=== PATIENT | male | born 1960 | race Caucasian/White ===

== ENCOUNTER → 2020-06-12 13:08 | Outpatient (CLI) | payer BC, SELFPAY ==
--- NOTE | 2020-06-12 13:45 | CT_ITS ---
CT of the left lower extremity without contrast INDICATION: Preop knee arthroplasty, january protocol. TECHNIQUE: Multiple thin section axial CT images of the left hip joint, left knee joint, and left ankle joint were obtained without the administration of intravenous contrast and filmed in bone windows. Furthermore, multiple sagittal and coronal reconstructions were performed. Dose limiting techniques were utilized. FINDINGS: No abnormal soft tissue mass, lymphadenopathy, fluid collection. No acute fracture or dislocation. No lytic or blastic lesions. Next Normal left hip joint. Moderate left knee arthrosis with a large joint effusion. Normal left ankle joint. IMPRESSION: Moderate knee arthrosis with a large joint effusion. Electronically Signed: Evangelista Abarca MD at 15:31 EDT Tel , Service support , CT/Extremity Lower without Contra
== END ==
PROVIDERS: PCP Family Medicine; Referring Provider Orthopaedic Surgery; Visit Provider Orthopaedic Surgery
DX: M17.12 Unilateral primary osteoarthritis, left knee (principal); M21.162 Varus deformity, not elsewhere classified, left knee
CPT/HCPCS: 73700

== ENCOUNTER 2020-06-30 07:31 | Observation (INO) | payer BC, SELFPAY ==
--- NOTE | 2020-06-23 08:23 | EKG12_ITS ---
Test Reason : PREOP Blood Pressure : / mmHG Vent. Rate : 060 BPM Atrial Rate : 060 BPM P-R Int : 160 ms QRS Dur : 102 ms QT Int : 418 ms P-R-T Axes : 012 064 041 degrees QTc Int : 418 ms Normal sinus rhythm Normal ECG Confirmed by BRIAN ALEXIS, BILLY ([id number]), graphics editor ANASTASIYA COURTNEY ([id number]) on 06/24/2020 9:09:36 AM Referred By: Ben Su Confirmed By:BILLY TORRES MD
[2020-06-23 08:57] LABS: Absolute Lymphocyte Count 1.55 X10^3/uL (0.83-4.51); Absolute Neutrophil Count 4.9 X10^3/uL (2.0-7.7); Basophil# 0.01 X10^3/uL; Basophil% 0.1 % (0-1); Eosinophil# 0.08 X10^3/uL; Eosinophils% 1.1 % (0-5); Hematocrit 45.1 % (40-54); Hemoglobin 15.2 g/dL (13.0-16.5); Lymphocyte # 1.55 X10^3/ul (4.0); Lymphocyte % 21.1 % (19-41); Mean Corp Hgb Conc 33.7 g/dL (32-36); Mean Corpuscular Hgb 31.3 pg (27.0-32.0); Mean Corpuscular Volume 92.8 fL (80-94); Mean Platelet Vol. 10.3 fl (6.2-12.0); Monocyte# 0.83 X10^3/uL; Monocyte% 11.3 % (0-10); NRBC Flagged by Analyzer 0 % (0-5); Neutrophil # 4.86 X10^3/uL (2.7-7.7); Platelet Count 220 K/mm3 (150-450); RBC Distribution Width CV 11.9 % (11.6-14.6); Red Blood Count 4.86 M/mm3 (4.6-6.2); White Blood Count 7.4 K/mm3 (4.4-11.0)
[2020-06-23 09:12] LABS: Anion Gap 7 (5-15); BUN 14 mg/dL (7-18); BUN/Creat Ratio 14.2 RATIO (10-20); Calcium,Total 9.1 mg/dL (8.5-10.1); Chloride 101 mmol/L (98-107); Creatinine, Serum 0.99 mg/dL (0.70-1.30); EST Glomerular Filtration Rate 82 mL/min (>60); Est Glom Filt Rate - Afr Amer 99 mL/min (>60); Glucose 114 mg/dL (74-106); Magnesium 2.3 mg/dL (1.6-2.6); Potassium 3.8 mmol/L (3.5-5.1); Sodium Level 137 mmol/L (136-145)
[2020-06-30] VITALS (12 sets, daily range): BP systolic 106–146; BP diastolic 48–79; PULSE 50–64; RESP 14–18; TEMP 36.1–37; O2SAT 96–100; BMI 38.2
[2020-06-30] MEDS: Acetaminophen 500 MG Tablet 1000 MG PO ×3 (06:32→22:05)
[2020-06-30] MEDS: Gabapentin 600 MG Tablet PO (06:32)
[2020-06-30] MEDS: Lactated Ringers 1,000 ML 125 ML IV ×2 (06:33→09:00)
[2020-06-30] MEDS: Insulin Lispro 100 UNIT/ML INSULN.PEN SC (06:45)
[2020-06-30 06:46] LABS: Bedside Glucose 258 mg/dL (70-110)
[2020-06-30] MEDS: Cefazolin 2 GM in 0.9% Normal Saline 100 ML IV (07:27)
--- NOTE | 2020-06-30 07:30 | KNEE_PTH ---
PATIENT: BILLY MEAD LOC: [facility] U#:[id number] AGE/SX: 59/M ROOM: IA312 RE06/30/[address]: Dr. Ben Su DO : 1960 BED: 1 DIS: 07/01/2020 SPEC #: [id number] RECD: 06/30/20 09:55 STATUS: MARIA G REJai #: [id number] RADHA: 06/30/20 07:[address]: Ben Su DEPT: SURGICAL PATHOLOGY RECD BY: Jered Escobar ENTERED: 06/30/20 10:22 SP TYPE: TOTAL KNEE OTHR DR: Dr. Johan Jean Baptiste III, MD Tissues: Knee, NOS Procedures: Decalcification bone/plaque Surgery Specimen Level IV HEADER OPERATION: Total knee replacement robotic arm assist PRE-OP DIAGNOSIS: Unilateral primary osteoarthritis left knee TISSUE SUBMITTED: Bone and soft tissue left knee MICROSCOPIC DIAGNOSIS Bone and soft tissue, left knee, total knee replacement/resection: Pieces of bone with degenerative osteoarthritic changes. Fibroadipose tissue, fibroconnective tissue and reactive synovial tissue. TRAVIS:mackenzie 07/03/20 MICROSCOPIC DESCRIPTION Slides are reviewed. GROSS DESCRIPTION Received is one container designated bone and soft tissue left knee. The specimen consists of multiple fragments of ayala-yellow bone measuring in aggregate 10 x 11 x 3 cm. Also in the specimen container are multiple fragments of yellow-white soft tissue measuring in aggregate 9 x 8 x 3 cm. A number of bony fragments contain articular surfaces consistent with tibial plateau and femoral condyle and displaying prominent osteophyte formation, eburnation, and bone erosion. Crm Campaign Manager sections are submitted in two cassettes as follows: 1 - soft tissue, 2 - bone after decalcification. / TRAVIS:mackenzie 06/30/20 TC:5 [facility]: [id number], [id number]
[2020-06-30 09:56] LABS: Bedside Glucose 81 mg/dL (70-110)
--- NOTE | 2020-06-30 10:00 | RAD_ITS ---
STUDY: X-RAY - LEFT KNEE REASON FOR EXAM: Male, 59 years old. POST OP LEFT TKA TECHNIQUE: 2 view(s) of the knee. COMPARISON: None. FINDINGS: Normal visualized distal femur. Normal visualized proximal tibia and fibula. Normal proximal tibiofibular articulation. The patient is status post total knee replacement. There is good alignment. Postoperative soft tissue changes RAD/Knee 1 or 2 Views IMPRESSION: Status post total knee replacement. There is good alignment. Postoperative soft tissue changes. Electronically Signed: Brad Ortiz, at 10:30 EDT , Service support ,
[2020-06-30 10:12] LABS: Hematocrit 44.4 % (40-54); Hemoglobin 15.1 g/dL (13.0-16.5); Mean Corpuscular Hgb 31.3 pg (27.0-32.0); Mean Corpuscular Volume 92.1 fL (80-94); Mean Platelet Vol. 10.3 fl (6.2-12.0); Platelet Count 230 K/mm3 (150-450); RBC Distribution Width CV 11.9 % (11.6-14.6); RBC Distribution Width SD 40.2 fl (35.1-43.9); Red Blood Count 4.82 M/mm3 (4.6-6.2); White Blood Count 8.3 K/mm3 (4.4-11.0)
[2020-06-30 10:23] LABS: Anion Gap 8 (5-15); BUN 12 mg/dL (7-18); BUN/Creat Ratio 12.6 RATIO (10-20); Calcium,Total 8.6 mg/dL (8.5-10.1); Chloride 108 mmol/L (98-107); Creatinine, Serum 0.95 mg/dL (0.70-1.30); EST Glomerular Filtration Rate 86 mL/min (>60); Est Glom Filt Rate - Afr Amer 104 mL/min (>60); Estimated Creatinine Clearance 82.69 ml/min; Glucose 88 mg/dL (74-106); Potassium 4.1 mmol/L (3.5-5.1); Sodium Level 139 mmol/L (136-145)
[2020-06-30] MEDS: Spironolactone 25 MG Tablet PO (11:37)
[2020-06-30] MEDS: Senna/Docusate Sodium 1 Tablet 2 TABLET PO ×2 (11:37→22:05)
[2020-06-30] MEDS: hydroCHLOROthiazide 25 MG Tablet PO (11:38)
--- NOTE | 2020-06-30 13:41 | OP.PCM_ITS ---
Report of Operation Date of Procedure: 06/30/20 Pre-Operative Diagnosis: OA left knee Post-Operative Diagnosis: same Surgery/Procedure Performed:: Left TKR acid purification equipment operator: Deangelo Dubois Type of Anesthesia:: Spinal Anesthesiologist: Nicola Schaefer Estimated Blood Loss (mL): 20 cc - Admit VTE Documentation VTE Present on Admission: No VTE Mechan Device Prophylaxis: SCD's, Thigh High FRANCISCO J Hose VTE Pharm Prophylaxis ordered?: Yes
[2020-06-30] MEDS: Cefazolin 1 GM/50 ML BAG IV (15:38)
[2020-06-30] MEDS: Aspirin 81 MG TAB.CHEW PO (16:29)
[2020-07-01] MEDS: Cefazolin 1 GM/50 ML BAG IV (00:01)
[2020-07-01] MEDS: oxyCODONE 5 MG Tablet PO ×4 (00:21→13:26)
[2020-07-01 00:23] VITALS: BP 146/80; PULSE 63; RESP 16; TEMP 36.3; O2SAT 98
[2020-07-01 04:28] VITALS: BP 143/79; PULSE 63; RESP 16; TEMP 36.7; O2SAT 97
[2020-07-01] MEDS: 0.9% NaCl Peripheral Flush Adult/Peds IV (04:31)
[2020-07-01 05:23] LABS: Hematocrit 41.1 % (40-54); Hemoglobin 13.8 g/dL (13.0-16.5); Mean Corp Hgb Conc 33.6 g/dL (32-36); Mean Corpuscular Hgb 31.7 pg (27.0-32.0); Mean Corpuscular Volume 94.5 fL (80-94); Mean Platelet Vol. 10.3 fl (6.2-12.0); Platelet Count 182 K/mm3 (150-450); RBC Distribution Width CV 11.9 % (11.6-14.6); RBC Distribution Width SD 41.2 fl (35.1-43.9); Red Blood Count 4.35 M/mm3 (4.6-6.2)
[2020-07-01 05:38] LABS: Anion Gap 4 (5-15); BUN 14 mg/dL (7-18); BUN/Creat Ratio 15.3 RATIO (10-20); Calcium,Total 8.3 mg/dL (8.5-10.1); Chloride 105 mmol/L (98-107); Creatinine, Serum 0.92 mg/dL (0.70-1.30); EST Glomerular Filtration Rate 89 mL/min (>60); Est Glom Filt Rate - Afr Amer 108 mL/min (>60); Estimated Creatinine Clearance 85.39 ml/min; Glucose 142 mg/dL (74-106); Potassium 4.5 mmol/L (3.5-5.1); Sodium Level 137 mmol/L (136-145)
[2020-07-01] MEDS: Acetaminophen 500 MG Tablet 1000 MG PO ×2 (06:28→13:25)
--- NOTE | 2020-07-01 07:47 | PN.ORTHO_ITS ---
Subjective: Patient sitting up in bed eating breakfast. Pain well managed. Patient denies chest pain, shortness of breath, calf pain, nausea vomiting. Patient has no other complaints. Patient states he is ready for discharge home today. Objective: Dressing is clean dry intact. Negative signs or symptoms of DVT. Vital signs and labs reviewed noted medical record. Patient is afebrile. Neurovascular is otherwise intact. Patient is speaking in full sentences with no obvious respiratory distress. - Physical Exam Vitals/I&O's: Vital Signs Temp Pulse Resp BP Pulse Ox 98.0 F 63 16 143/79 H 97 07/01/20 04:28 07/01/20 04:28 07/01/20 04:28 07/01/20 04:28 07/01/20 04:28 Oxygen Flow Rate (L/min) 6 Oxygen Delivery Method Room Air Weight: 117.4 kg Body Mass Index (BMI) 38.2 Finger Stick Blood Glucose 81 Intake and Output for Last 24 Hours 06/29/20 06/30/20 07/01/20 23:59 23:59 23:59 Intake Total 2487 / 2842 555 / 555 Output Total 250 / 250 Balance 2487 / 2592 305 / 305 General: Alert, Oriented x3, Cooperative HEENT: PERRLA Oral: Moist Mucosa Neurological: Cranial nerves II-XII grossly intact Psych/Mental Status: Normal Affect, Alert and oriented to time, place, person, mood and affect Laboratory Results 06/30/20 09:50: POC Glucose 81 06/30/20 10:06: WBC 8.3, RBC 4.82, Hgb 15.1, Hct 44.4, MCV 92.1, MCH 31.3, MCHC 34.0, RDW Std Deviation 40.2, RDW Coeff of Lizbeth 11.9, Plt Count 230, MPV 10.3 06/30/20 10:06: Sodium 139, Potassium 4.1, Chloride 108 H, Carbon Dioxide 23.0, Anion Gap 8, BUN 12, Creatinine 0.95, Estim Creat Clear Calc 82.69, Est GFR (MDRD) Af Amer 104, Est GFR (MDRD) Non-Af 86, BUN/Creatinine Ratio 12.6, Glucose 88, Calcium 8.6 07/01/20 05:14: WBC 10.0, RBC 4.35 L, Hgb 13.8, Hct 41.1, MCV 94.5 H, MCH 31.7, MCHC 33.6, RDW Std Deviation 41.2, RDW Coeff of Lizbeth 11.9, Plt Count 182, MPV 10.3 07/01/20 05:14: Sodium 137, Potassium 4.5, Chloride 105, Carbon Dioxide 28.0, Anion Gap 4 L, BUN 14, Creatinine 0.92, Estim Creat Clear Calc 85.39, Est GFR (MDRD) Af Amer 108, Est GFR (MDRD) Non-Af 89, BUN/Creatinine Ratio 15.3, Glucose 142 H, Calcium 8.3 L Current Medications Acetaminophen (Acetaminophen 500 Mg Tablet) 1,000 mg PO Q8 [facility] Last Admin: 07/01/20 06:28 Dose: 1,000 mg Documented by: Amlodipine Besylate (Amlodipine 10 Mg Tablet) 10 mg PO DAILY [facility] Aspirin (Aspirin 81 Mg Tab.Chew) 81 mg PO BIDCM [facility] Last Admin: 06/30/20 16:29 Dose: 81 mg Documented by: Hydrochlorothiazide (Hydrochlorothiazide 25 Mg Tablet) 25 mg PO DAILY [facility] Last Admin: 06/30/20 11:38 Dose: 25 mg Documented by: Insulin Human Lispro (Insulin Lispro 100 Unit/Ml Insuln.Pen) 1 - 6 unit SC Q4H PRN PRN; Protocol PRN Reason: BG>/= 180, SEE PROTOCOL Last Admin: 06/30/20 06:45 Dose: 3 units Documented by: Losartan Potassium (Losartan Potassium 100 Mg Tablet) 100 mg PO DAILY [facility] Ondansetron HCl (Ondansetron 4 Mg/2 Ml Vial) 4 mg IV Q8H PRN PRN PRN Reason: NAUSEA Oxycodone HCl (Oxycodone 5 Mg Tablet) 5 - 10 mg PO Q4H PRN PRN PRN Reason: Pain Score 4-10 Last Admin: 07/01/20 04:31 Dose: 10 mg Documented by: Promethazine HCl (Promethazine 25 Mg/Ml Syringe) 12.5 mg IM Q6H PRN PRN; Protocol PRN Reason: NAUSEA/VOMITING Senna/Docusate Sodium (Senna/Docusate Sodium 1 Tablet) 2 tablet PO BID [facility] Last Admin: 06/30/20 22:05 Dose: 2 tablet Documented by: Sodium Chloride (0.9% Nacl Peripheral Flush Adult/Peds) 5 - 15 ml IV UD PRN PRN Reason: SALINE FLUSH Last Admin: 07/01/20 04:31 Dose: 10 ml Documented by: Sodium Chloride (0.9% Saline Lock 10 Ml Syringe) 10 - 40 ml IV UD PRN PRN Reason: SALINE FLUSH Spironolactone (Spironolactone 25 Mg Tablet) 25 mg PO DAILY [facility] Last Admin: 06/30/20 11:37 Dose: 25 mg Documented by: Medical Necessity - Tobacco Use Smoking Status: Never smoker Tobacco Use: Chew Assessment/Plan Status post left total knee arthroplasty Plan 1. Continue all pain medications as prescribed 2. Continue physical therapy, weight-bear as tolerated with walker 3. Aspirin 81 mg 1 p.o. every 12 hours x30 days for postop DVT prophylaxis 4. Encourage incentive spirometry 5. Patient will continue outpatient physical therapy at [facility] 6. Patient will follow up as scheduled see pink sheet 7. Discharge home today after p.m. therapy
--- NOTE | 2020-07-01 07:52 | DCINST_ITS ---
Discharge Diet: No Restrictions Discharge Activity: May Not Drive, May Shower, Use Walker May shower in (days): 3 Ice area for (Minutes): 20 - each hour while awake. Weight Bearing Status: Weight bearing as tolerated Elevate: Operative Extremity Additional Activity Instructions:: Wear elastic stockings for 2 weeks after your surgery. Call your doctor if your incision/area has: Continuous Slow Oozing, Sudden Increased Bleeding, Increased Pain/ Swelling, Increased Redness, Foul Smelling Discharge Call your doctor if you observe: Fever of 101 or Higher, Coldness, Increased Pain - in extremity, Numbness or Tingling, Change in Color, Calf discomfort, Uncontrolled pain Change Dressing in (Days):: 0 - and daily as needed. Remove Dressing in (days):: 8 Cleanse incision/area with: Soap & Water Allergies/Adverse Reactions: Allergies No Known Allergies Allergy (Verified 06/16/20 08:14) Medications to take at Discharge Amlodipine Besylate [Norvasc] 10 mg PO DAILY 06/16/20 Hydrochlorothiazide [Hctz] 25 mg PO DAILY 06/16/20 Losartan Potassium [Cozaar] 100 mg PO DAILY 06/16/20 Meloxicam 15 mg PO PRN PRN 06/16/20 Spironolactone [Aldactone] 25 mg PO DAILY 06/16/20 Acetaminophen [Tylenol] 1,000 mg PO Q8 #90 tab 07/01/20 Aspirin [Aspirin, Baby] 81 mg PO BIDCM #60 tab.chew 07/01/20 Oxycodone [Oxyir] 5 - 10 mg PO Q4H PRN PRN 7 Days #84 tablet 07/01/20 Senna/Docusate Sodium [Senokot-S] 2 tablet PO BID tablet 07/01/20 The following prescriptions were given: Aspirin [Aspirin, Baby] 81 mg PO BIDCM #60 tab.chew Transmission Status: Pending to [facility] Oxycodone [Oxyir] 5 - 10 mg PO Q4H PRN PRN 7 Days #84 tablet PRN Reason: Pain Score 4-10 Transmission Status: Received by [facility] Acetaminophen [Tylenol] 1,000 mg PO Q8 #90 tab Transmission Status: Pending to [facility] Primary Care Physician: Johan Jean Baptiste III, MD [Primary Care Provider] - Test Results: Test results from this visit will be discussed in further detail at your follow- up appointment, if applicable. Please Follow Up With: Deangelo Dubois PAKingC When: as scheduled (see pink sheet)
[2020-07-01 07:58] VITALS: O2SAT 97
[2020-07-01 08:17] VITALS: BP 136/76; PULSE 60; RESP 16; TEMP 36.7; O2SAT 99
[2020-07-01 08:20] VITALS: PULSE 60
[2020-07-01] MEDS: Aspirin 81 MG TAB.CHEW PO (08:24)
[2020-07-01] MEDS: Senna/Docusate Sodium 1 Tablet 2 TABLET PO (09:43)
[2020-07-01] MEDS: amLODIPine 10 MG Tablet PO (09:43)
[2020-07-01] MEDS: Losartan Potassium 100 MG Tablet PO (09:43)
[2020-07-01] MEDS: Spironolactone 25 MG Tablet PO (09:43)
[2020-07-01] MEDS: hydroCHLOROthiazide 25 MG Tablet PO (09:43)
--- NOTE | 2020-07-01 11:00 | CASEMGMT ---
RN LYUDMILA DOCUMENT PREPARATION SPECIALIST CM to room to meet with patient for initial transition planning/care coordination assessment. VERO COREAS introduced self and role at [facility]. Pt voices understanding and consents to assessment at this time. Pt sitting up in chair in room in no distress at this time. in room visiting. Pt is A/O at this time and answers all questions appropriately. Care providers, pharmacy, and demographics verified/updated at this time. PCP: Dr Rodney Jean Baptiste Specialists: Dr Su-ortho Preferred Pharmacy: [facility] Insurance: [place] Prescription Benefit: Yes Living Will/HPOA: Has LW and Healthcare POA, who is his , Bess. They are aware copies are not on file @ [facility]. LNOK: , Bess. Living Arrangements: Lives w/ in 2-story home. Flight to Bedroom and full bath. Plans to [facility] for awhile until he is able to navigate stairs better. Was independent prior to admission. able to help. Transportation: Pt, . Denies transportation concerns. DME: States has the following DME: Shower chair, raised toilet seat, cane, crutches, grab bars, walker, long shoe horn, yarn examiner skeins, Polar care. Pt states no need for further DME at this time. HHC/SNF: No history of either. Denies need for HHC. Plans to go to OP therapy @ [facility]. Has appt 07/04 @ 0900. Pt wishes to return home and states has no concerns with going home at time of discharge. CM to follow for any discharge planning/needs. Pt/ voice no concerns/needs at this time. Advised them to ask for CM if any questions/concerns/needs arise. Miriam voice understanding. PLAN: Home w/OP PT @ [facility]. Amandeep DE SANTIAGO RN, CM
[2020-07-01 12:08] VITALS: BP 142/73; PULSE 68; RESP 16; TEMP 37.3; O2SAT 98
== END 2020-07-01 13:36 | disposition home or self-care (01) ==
LOC: MS3 11:14 → SDC 11:16 → MS3 11:16
PROVIDERS: Anesthesiology; Admitting Provider Orthopaedic Surgery; PCP Family Medicine; Referring Provider Orthopaedic Surgery; Visit Provider Orthopaedic Surgery
PROC: 0SRD0JZ Replacement of Left Knee Joint with Synthetic Substitute, Open Approach (ICD-10-PCS; CPT 27447; principal; 2020-06-30 07:00)
DX: M17.12 Unilateral primary osteoarthritis, left knee (principal); Z20.828 Contact with and (suspected) exposure to other viral communicable diseases; I10 Essential (primary) hypertension; Z79.899 Other long term (current) drug therapy; M21.162 Varus deformity, not elsewhere classified, left knee
CPT/HCPCS: 01400; 27447; 64447; S2900; 36415; 73560; 80048; 82962; 83735; 85025; 85027; 87077; 87081; 87635; 88305; 88311; 93005; 94762; 96361; 96365; 96366; 97110; 97116; 97161; 97166; 97530; 97535; 99218; 99251; 99406; C1776; C9803; J7040; J7120; A4216; G0378; G0379; G0463; J2405; U0003

== ENCOUNTER 2020-12-26 20:50 | Emergency (ER) | payer OTHER, SELFPAY ==
[2020-06-30 10:59] VITALS: BMI 38.2
[2020-12-26 20:51] VITALS: BP 124/73; PULSE 70; RESP 16; TEMP 35.8; O2SAT 97; BMI 36.9
--- NOTE | 2020-12-26 21:05 | ED.VIS.GEN ---
History of Present Illness Chief Complaint: Laceration Informant: Patient Onset: Today Narrative: Patient is a [id number]-rhbrjdhp male. He is presenting with laceration to his right index finger. He cut it still this afternoon. He is more concerned because it will not stop bleeding. He denies any significant pain. He is not sure his last tetanus was. He denies any deformity of the finger difficulty moving it. He is not on any blood thinners. His recommend he come to the emergency room for a stitch. Past Medical History - Allergies and Home Meds Allergies/Adverse Reactions: Allergies No Known Allergies Allergy (Verified 12/26/20 21:14) Primary Care Physician: Johan Jean Baptiste III, MD [Primary Care Provider] - Smoking Status: Never smoker Review of Systems General: Denies: Chills, Fever, Sweats Cardiovascular: Denies: Chest pain Gastrointestinal: Denies: Abdominal pain, Nausea Musculoskeletal: Denies: Myalgias, Arthralgias, Extremity Pain Skin: Reports: Wounds - right index finger Neurological: Denies: Headache, Weakness, Parasthesia Hematologic: Denies: Easy bruising, Easy bleeding Physical Exam Vital Signs/Narrative: Vital Signs Temp Pulse Resp BP Pulse Ox 12/26/20 20:51 96.4 F L 70 16 124/73 H 97 Inital Vital Signs reviewed: Yes General: Well nourished, Well developed, No Acute Distress Head: Normocephalic, Atraumatic Eyes: Perrl, EOMI ENT: Moist mucous membranes, No rhinorrhea Neck: Supple, Nontender Cardiovascular: Regular rate Respiratory: No distress Back: Nontender, Normal Inspection Extremities: Nontender, No edema, - - normal range of motion of right index finger Skin: Normal color, No rash, Trauma - 5 mm full-thickness laceration over the proximal PIP, lateral aspect of the right index finger Neurological: Alert, Oriented x3, Cranial nerves II-XII grossly intact, Normal Strength, Normal Sensation Psychological: Normal affect, Normal Mood Diagnostic/Tx/Re-eval - Medical Decision Making Patient evaluated for laceration to the right index finger the laceration itself is small however he continues to bleed, probably because it is over the PIP joint of his dominant hand. 1 sutures placed to approximate the wound and prevent further bleeding. Patient is offered lidocaine but and elects to just have the suture placed without anesthetic. Patient counseled on wound care. Observable sutures placed so he would not have to have it removed. Patient is counseled on signs and symptoms requiring return to the emergency room. Patient verbalizes agreement and understand this plan. Patient discharged home in stable and improved condition. Procedures - Lacerations No standard instances Length: 0.2 in Depth: Skin Shape: Linear Prep: Shure-Clens Irrigated (ml): 200 Number of Sutures/[place]: 1 Suture Information: Vicryl - Absorbable, Simple, 4-0 ED Disposition - Plan for ED Patient: Disposition: Home or Assisted Living Diagnosis: Finger laceration, Need for Tdap vaccination Instructions: ED Laceration, Hand: All Closures Referrals: Johan Jean Baptiste III, MD [Primary Care Provider] - Additional Instructions: 1 absorbable stitch was placed. It should fall out on its own in approximately 7 days. If is still in after that is can be cut out.
[2020-12-26] MEDS: Diphth,Pertuss(Acell),Tet Vac 0.5 ML Vial IM (21:10)
[2020-12-26] MEDS: Lidocaine 1% (20 ml mdv) 20 ML Vial INFILT (21:38)
== END 2020-12-26 21:42 | disposition home or self-care (01) ==
LOC: ED 21:41
PROVIDERS: Emergency Provider Emergency Medicine; PCP Family Medicine
DX: S61.210A Laceration without foreign body of right index finger without damage to nail, initial encounter (principal); W45.8XXA Other foreign body or object entering through skin, initial encounter; Y93.9 Activity, unspecified; Y92.9 Unspecified place or not applicable; Y99.9 Unspecified external cause status
CPT/HCPCS: 12001; 90715; 99284

== ENCOUNTER → 2023-06-27 | Outpatient (CLI) | payer OTHER, SELFPAY ==
--- NOTE | 2023-06-27 13:38 | CT_ITS ---
PROCEDURE: CT RIGHT KNEE WITHOUT CONTRAST REASON FOR EXAM: Male, 62 years old. Preoperative planning for the MakoPlasty Robotic knee surgery. Knee pain. TECHNIQUE: Transaxial CT of the hip, knee and ankle were obtained. Coronal and sagittal reconstruction images of the knee were provided. Individualized dose optimization techniques were used for this CT. COMPARISON: None. FINDINGS: Standard protocol for the preoperative planning for the MakoPlasty robotic knee surgery was performed. There is mild osteoarthrosis of the right hip, moderate tricompartmental arthrosis of the right knee and mild arthrosis of jugular subtalar joints. Calcaneal spurs.. CT/Extremity Lower without Contra IMPRESSION: Preoperative MakoPlasty Robotic knee surgical CT evaluation with findings as described above. Electronically Signed: Deangelo Alvarez MD at 15:15 EDT ,
== END | disposition home or self-care (01) ==
LOC: CT 13:32
PROVIDERS: Visit Provider Orthopaedic Surgery
DX: M17.11 Unilateral primary osteoarthritis, right knee (principal)
CPT/HCPCS: 73700

== ENCOUNTER 2023-07-11 05:25 | Day surgery (SDC) | payer OTHER, SELFPAY ==
[2023-06-27 14:45] LABS: Absolute Lymphocyte Count 1.15 X10^3/uL (0.83-4.51); Absolute Neutrophil Count 2.6 X10^3/uL (2.0-7.7); Basophil# 0.01 X10^3/uL; Basophil% 0.2 % (0-1); Eosinophil# 0.04 X10^3/uL; Eosinophils% 0.8 % (0-5); Hematocrit 45.9 % (40-54); Hemoglobin 15.4 g/dL (13.0-16.5); Lymphocyte # 1.15 X10^3/ul (0.83-4.51); Lymphocyte % 23.9 % (19-41); Mean Corp Hgb Conc 33.6 g/dL (32-36); Mean Corpuscular Hgb 30.8 pg (27.0-32.0); Mean Corpuscular Volume 91.8 fL (80-94); Mean Platelet Vol. 10.2 fl (6.2-12.0); Monocyte# 0.98 X10^3/uL; Monocyte% 20.4 % (0-10); NRBC Flagged by Analyzer 0 % (0-5); Neutrophil % 54.1 % (47-70); Platelet Count 187 K/mm3 (150-450); RBC Distribution Width CV 12.2 % (11.6-14.6); RBC Distribution Width SD 40.8 fl (35.1-43.9); White Blood Count 4.8 K/mm3 (4.4-11.0)
[2023-06-27 14:54] LABS: Magnesium 2.3 mg/dL (1.6-2.6)
[2023-06-27 15:00] LABS: Albumin, Serum 4.1 g/dL (3.2-5.0); Anion Gap 4 (5-15); BUN 14 mg/dL (7-18); BUN/Creat Ratio 15.8 RATIO (10-20); Calcium,Total 8.8 mg/dL (8.5-10.1); Chloride 104 mmol/L (98-107); Creatinine, Serum 0.89 mg/dL (0.70-1.30); EST Glomerular Filtration Rate 92 mL/min (>60); Est Glom Filt Rate - Afr Amer 111 mL/min (>60); Glucose 97 mg/dL (74-106); Potassium 3.8 mmol/L (3.5-5.1); Sodium Level 136 mmol/L (136-145)
[2023-06-27 15:25] LABS: Hemoglobin A1c 5.5 % (3.8-5.6)
[2023-07-11] MEDS: Lactated Ringers 1,000 ML 999 ML IV (06:21)
[2023-07-11] MEDS: Gabapentin 600 MG Tablet PO (06:23)
[2023-07-11] MEDS: Acetaminophen 500 MG Tablet 1000 MG PO (06:23)
[2023-07-11] MEDS: Magnesium 1 GM over 15 mins IV (06:23)
[2023-07-11 06:26] VITALS: BP 127/69; PULSE 60; RESP 18; TEMP 36.3; O2SAT 97; BMI 37.8
[2023-07-11] MEDS: Lactated Ringers 1,000 ML 125 ML IV (07:30)
--- NOTE | 2023-07-11 07:30 | KNEE_PTH ---
PATIENT: BILLY MEAD [place] [id number] AGE/SX: 62/M ROOM: RE07/11/[address]: Dr. Ben Su DO : 1960 BED: DIS: 07/11/2023 SPEC #: [id number] RECD: 07/11/23 10:12 STATUS: MARIA G WILFREDO #: [id number] RADHA: 07/11/23 07:[address]: Ben Su DEPT: SURGICAL PATHOLOGY RECD BY: Adeola Felder ENTERED: 07/11/23 11:10 SP TYPE: TOTAL KNEE OTHR DR: Dr. Santana Spencer MD Tissues: Knee, NOS Procedures: Decalcification bone/plaque Surgery Specimen Level IV HEADER OPERATION: ERAS, right total knee replacement robotic arm assist PRE-OP DIAGNOSIS: Unilateral primary osteoarthritis, right knee TISSUE SUBMITTED: bone and soft tissue of right knee MICROSCOPIC DIAGNOSIS Bone and soft tissue, right knee, total knee replacement/resection: Pieces of bone with degenerative osteoarthritic changes. Fibroadipose tissue, fibroconnective tissue and reactive synovial tissue. SJ: 07/14/2023 MICROSCOPIC DESCRIPTION Slides are reviewed. GROSS DESCRIPTION Received is one container designated bone and soft tissue right knee. The specimen consists of multiple fragments of ayala-yellow bone measuring in aggregate 11 x 11 x 3.5 cm. Also present in the specimen container are multiple fragments of yellow-white soft tissue measuring in aggregate 8 x 8 x 3 cm. A number of bony fragments contain articular surfaces consistent with tibial plateau and femoral condyle and displaying prominent osteophyte formation, eburnation and bone erosion. Solderer Dipper sections are submitted in two cassettes as follows: 1 - soft tissue, 2 - bone after decalcification. / TRAVIS:roscoe 07/11/23 : 5 [facility]: [id number], [id number]
[2023-07-11] MEDS: Cefazolin 2 GM in 0.9% Normal Saline (100mL Bag) 100 ML IV (07:34)
[2023-07-11] MEDS: TXA 1000mg in NS100 100ml (IVPB at Incision) 660 MG IV (07:46)
[2023-07-11 07:57] LABS: Bedside Glucose 191 mg/dL (74-106)
[2023-07-11] MEDS: JPS (Morphine 10mg/ml) OPERA.SITE (08:58)
[2023-07-11] MEDS: TXA 1000mg in NS100 100ml (IVPB at Closure) 660 MG IV (09:03)
--- NOTE | 2023-07-11 09:12 | PCM.OPRPT ---
Report of Operation Date of Procedure: 07/11/23 Pre-Operative Diagnosis: OA right knee Post-Operative Diagnosis: OA right knee Surgery/Procedure Performed:: Right TKR Description of Surgical Findings:: Report of Operation Date of Procedure: 07/11/2023 Preoperative Diagnosis: [Right ] knee primary osteoarthritis Postoperative Diagnosis: [Right ] knee primary osteoarthritis Operation: Robotic Assisted Knee Total Arthroplasty, [ Right ] knee Surgeon: Dr Ben Su DO Hydraulic Auto Jack Mechanic: Deangelo Dubois PA-C Anesthesia: Greyson Arciniega M.D. Anesthesiologist: Spinal Findings: Stable knee with good patella tracking Specimen(s): Bony cuts Complications: No intraoperative complications Estimated Blood Loss: 20 cc IV Fluids: 1000cc crystalloid Implants Used: 1. [place] Triathlon pres-fit size 5 CR femur 2. [place] Triathlon size 5 tibia 3. 35 mm patella 4. 9 mm CS polyethylene Brief History Operative Indications: [ (62 y/o male) ] with history of [ right ] knee osteoarthrosis with radiographic findings with loss of joint space, osteophyte formation and subchondral sclerosis. Failed conservative measures as mentioned in the H&P. Discussion of total knee arthroplasty as well as risk and benefits were discussed with the patient including but not limited to blood loss, DVTs, PEs, neurovascular damage, general risk of anesthesia including loss of life, and stiffness or instability were also discussed with the patient. Patient demonstrated understanding and was able to sign informed consent. Procedure: On the date of procedure, patient's [ right ] lower extremity was marked in the preoperative area. The patient was then taken back to the operating room where that patient was placed on the table in the supine position. All bony prominences were identified and well-padded. Anesthesia assumed control of the C-spine and airway throughout the remainder of the procedure. A tourniquet was placed on the [right ] upper thigh and the leg was prepped in a sterile fashion. The surgeon then scrubbed at this time. Upon reentering the room, the [ right ] lower extremity was draped in a standard orthopedic fashion. A timeout was then called and everyone agreed upon the side, the site, the procedure to be performed, patient's identity and antibiotics given. Esmarch bandage was used to exsanguinate the extremity and the tourniquet was placed up to 250 mmHg with the knee in flexion. A midline skin incision was made and a sharp dissection was taken down through skin, subcutaneous tissue and fat. The standard medial parapatellar incision was made and the patella was subluxed laterally. An appropriate deep MCL release was done and the fat pad was resected. Our attention was then directed to the patella. The patella was everted and a flat resection was made. The knee was then flexed up and 2 femoral pins were placed inside the incision and 2 tibial pins were placed outside the incision in the medial tibia bicortically. Once this was completed, the 2 checkpoints in the femur and tibia were placed. Knee was then flexed up and the bony landmarks were registered. Once the was completed, the knee taken through range of motion and manually stressed allowing us to plan for an appropriate tibial cut. The robotic arm was brought into the field sterilely and checkpoint and saw were registered. Based on the patient's deformity, the tibial cut was made in [ 2 degrees varus ]. At this time, the tensioner was then placed in the joint and ligament tension was checked at 90 degrees and full extension. Based on the patient's ligamentous tension, appropriate adjustments were made to the operative plan and ligament releases were done. Once we were happy with our operative plan with balanced flexion and extension gaps, our attention was directed to the femur. The robot was brought into the field sterilely and registered. Posterior condylar cuts, anterior chamfer cuts and anterior cuts were appropriately made for a [size 5 ] femur. When these were completed, the saws were switched out in the distal femoral and posterior chamfer cuts were made. Protecting the soft tissue throughout this time. A [size 5 ] base plate was selected. The knee was flexed to 90 degrees and soft tissues and posterior osteophytes were removed from the joint. 40 cc of the periarticular injection was injected into the posterior medial corner of the joint. The appropriate trials were then placed on the femur and tibia. A trial polyethylene was trialed to ensure proper balancing and stability of the knee. The appropriate tibial internal rotation was then marked with a bovie. Our attention was then directed to the patella. The lug holes were drilled and the patella trial was placed. Patellar tracking was checked and deemed appropriate. Once we were happy, lug holes were drilled for the femur and trial components were removed. The tibia was subluxed and pinned into place and the keel was punched and drilled appropriately. Final components were verified and opened. The wound was copiously irrigated with normal saline. The components were impacted into place with the tibia, femur and finally the patella. The trial poly component was placed and the knee was placed in full extension. The tracking, alignment and balance were verified and a [9 mm CS ] polyethylene component was placed. Once the final components were placed an Irrisept lavage was performed and the wound was copiously irrigated with normal saline solution and the periarticular injection was given. the wound was closed in a layer-lewis fashion using #1 vicryl interrupted sutures for the arthrotomy, 2-0 interrupted vicryl suture for the subcuticular layer and alisson for final skin closure. A sterile compressive dressing was then placed. The patient was then awakened from anesthesia, transferred to the [facility] and transferred to the PACU for recovery. My physician medical library assistant was a vital part of this case. He was important in appropriate retraction during the case, and protection of soft tissues during bony cuts. His intimate knowledge of the case and my steps aided in safe and expedient completion of the procedure as well as appropriate position of the leg during the case. He was also vital in assisting with closure under my direct supervision. Due to the complexity of this case, robotic arm was used to assist in the surgery to improve accuracy and clinical outcomes. Post-op Plan: DVT ppx; ASA 81 mg BID, thigh high compression stockings Follow up: in office in 2 weeks for wound check PT: to start POD #0 at hospital, outpatient PT should be arranged. Preoperative antibiotic: Ben Su DO Surgeon: Ben Su exchange consultant: Deangelo Dubois Type of Anesthesia: Spinal Anesthesiologist: Greyson Arciniega Admsantos VTE Documentation VTE Present on Admission: No VTE Mechan Device Prophylaxis: SCD's and Thigh High FRANCISCO J Hose VTE Pharm Prophylaxis ordered?: Yes
[2023-07-11 09:45] VITALS: BP 108/65; BP 127/69; PULSE 58; RESP 16; TEMP 36.6; O2SAT 95
[2023-07-11 10:00] VITALS: BP 115/63; BP 127/69; PULSE 59; RESP 16; O2SAT 100
--- NOTE | 2023-07-11 10:08 | RAD_ITS ---
STUDY: X-RAY - RIGHT KNEE REASON FOR EXAM: Male, 62 years old. Post op TECHNIQUE: 2 view(s) of the knee. COMPARISON: None. FINDINGS: The patient is status post total knee replacement. There is good alignment. Postoperative soft tissue changes. RAD/Knee 1 or 2 Views IMPRESSION: Status post total knee replacement. There is good alignment. Postoperative soft tissue changes. Electronically Signed: Brad Ortiz MD at 13:05 EST ,
[2023-07-11 10:15] VITALS: BP 108/65; BP 127/69; PULSE 57; RESP 16; O2SAT 92
[2023-07-11 10:23] VITALS: BP 117/78; BP 127/69; PULSE 59; RESP 16; TEMP 36.4; O2SAT 97
[2023-07-11 13:14] VITALS: BP 117/74; BP 127/69; PULSE 63; RESP 16; TEMP 36.1; O2SAT 99
== END 2023-07-11 14:05 | disposition home or self-care (01) ==
LOC: SDC 05:27 → AC 05:27
PROVIDERS: Anesthesiology; PCP Family Medicine; Referring Provider Orthopaedic Surgery; Visit Provider Orthopaedic Surgery
PROC: 0SRC0JZ Replacement of Right Knee Joint with Synthetic Substitute, Open Approach (ICD-10-PCS; CPT 27447; principal; 2023-07-11 07:00)
DX: M17.11 Unilateral primary osteoarthritis, right knee (principal); F17.220 Nicotine dependence, chewing tobacco, uncomplicated; I10 Essential (primary) hypertension; E66.9 Obesity, unspecified; Z79.899 Other long term (current) drug therapy; Z68.37 Body mass index [BMI] 37.0-37.9, adult
CPT/HCPCS: 27447; 64447; 36415; 73560; 80048; 82040; 82962; 83036; 83735; 85025; 87081; 88305; 88311; 93005; 97162; C1776; J2405; J3475

== ENCOUNTER → 2023-08-30 | Outpatient (CLI) | payer OTHER, SELFPAY ==
--- NOTE | 2023-08-30 12:47 | VDLE_ITS ---
Reason For Study: R/O DVT RIGHT GSV is normal. CFV is compressible, spontaneous, phasic, competent and demonstrates normal augmentation. FV is compressible, spontaneous, phasic, competent and demonstrates normal augmentation. POP V is compressible, spontaneous, phasic, competent and demonstrates normal augmentation. T/P Trunk is compressible. PTV is compressible. RT PerV is compressible. Nonvascularized structure noted on lateral knee at area of concern. Patient is 7 weeks s/p TKR. Procedure This is a venous duplex using B-mode, color flow and spectral Doppler. Exam performed in department. A preliminary report was called and/or faxed to [facility]. VL/Venous Duplex US, Unilateral Interpretation Summary Deep veins of the right lower extremity are patent and compressible segmentally . There is no evidence of right lower extremity deep vein thrombosis. The right great [place] us vein appears patent and compressible segmentally. Nonvascularized structure noted on lateral knee at area of concern Ordering Physician: Maya Randolph Referring Physician: Kareem Spencer Performed By: Stephanie Blue RVT
[2023-08-30 15:28] LABS: Absolute Lymphocyte Count 1.65 X10^3/uL (0.83-4.51); Absolute Neutrophil Count 6.6 X10^3/uL (2.0-7.7); Basophil# 0.04 X10^3/uL; Basophil% 0.4 % (0-1); Eosinophil# 0.11 X10^3/uL; Eosinophils% 1.2 % (0-5); Hematocrit 45.2 % (40-54); Hemoglobin 14.9 g/dL (13.0-16.5); Lymphocyte # 1.65 X10^3/ul (0.83-4.51); Lymphocyte % 17.8 % (19-41); Mean Corpuscular Hgb 30.5 pg (27.0-32.0); Mean Corpuscular Volume 92.4 fL (80-94); Mean Platelet Vol. 10.6 fl (6.2-12.0); Monocyte# 0.76 X10^3/uL; Monocyte% 8.2 % (0-10); NRBC Flagged by Analyzer 0 % (0-5); Neutrophil # 6.61 X10^3/uL (2.7-7.7); Neutrophil % 71.5 % (47-70); Platelet Count 268 K/mm3 (150-450); RBC Distribution Width CV 13.3 % (11.6-14.6); RBC Distribution Width SD 45.3 fl (35.1-43.9); Red Blood Count 4.89 M/mm3 (4.6-6.2); White Blood Count 9.3 K/mm3 (4.4-11.0)
[2023-08-30 15:53] LABS: Erythrocyte Sedimentation Rate < 1 mm/hr (0-20)
[2023-08-30 16:12] LABS: CRP < 2.90 mg/L (0.0-3.0)
== END | disposition home or self-care (01) ==
LOC: CVS 12:44
PROVIDERS: PCP Family Medicine; Referring Provider Physician Assistant Surgical; Visit Provider Physician Assistant Surgical
DX: M79.604 Pain in right leg (principal)
CPT/HCPCS: 36415; 85025; 85652; 86140; 93971

== ENCOUNTER → 2023-09-02 | Outpatient (CLI) | payer OTHER, SELFPAY ==
[2023-09-02 09:03] LABS: Pathologist Comment May follow
[2023-09-02 09:34] LABS: RBC /Synovial Fluid 0.046 10^6/uL (0); Synovial Fld Mononuclear WBC # 0.277 10^3/ul; Synovial Fld Mononuclear WBC % 78.9 %; Synovial Fld Polynuclear WBC # 0.074 10^3/uL; Synovial Fld Polynuclear WBC % 21.1 %
[2023-09-02 09:37] LABS: AUTO B FLUID DILUENT BKGD CT WBC <0.1 RBC <0.01 (W<.1,R<.01); Appearance /Synovial Fluid Cloudy (CLEAR); Color / Synovial Fluid Red (Pale Yellow); Source / Synovial Fluid R KNEE; Source- Body Fluid SYNOVIAL; Viscosity / Synovial Fluid Sl. Viscous (HIGH)
[2023-09-02 09:43] LABS: CRYSTALS, BODY FLUID See PATH REV
[2023-09-02 10:11] LABS: Lymph 36 %; Monocyte /Synovial Fluid 38 %; Neutrophil 26 % (0-25)
[2023-09-02 10:15] LABS: Body Fluid QC Type(s) BF1Q,BF2Q
[2023-09-02 12:19] LABS: Pathologist Review Reviewed
== END | disposition home or self-care (01) ==
LOC: LABSPEC 08:53
PROVIDERS: PCP Family Medicine; Referring Provider Orthopaedic Surgery; Visit Provider Orthopaedic Surgery
DX: Z96.651 Presence of right artificial knee joint (principal)
CPT/HCPCS: 87070; 87075; 87205; 89050; 89051; 89060

== ENCOUNTER 2024-09-14 07:00 | Day surgery (SDC) | payer OTHER, SELFPAY ==
--- NOTE | 2024-09-11 19:00 | PAT.ANE_ITS ---
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 When Was Last Pacemaker Check QUESTION #4 FULL TEXT: You/Your Family Experience fever (hyperthermia) with Anesthesia Last Oral Intake Last Oral intake: Last Oral Intake NPO since Meds taken in AM with sips of water? Meds patient instructed to take am of surgery PONV PONV - bath house attendant: PONV - bath house attendant Female No 09/11/24 09:25 HX of Motion Sickness No 09/11/24 09:25 HX of N/V After Surgery No 09/11/24 09:25 Non-Smoker Yes 09/11/24 09:25 Duration of Surgery greater No 09/11/24 09:25 than 60 minutes Number of Risk Factors 1 09/11/24 09:25 PONV Score Low Risk 09/11/24 09:25 Height & Weight Height & Weight: Anesthesia: Height & Weight Height 5 ft 9 in 07/11/23 06:26 Respiratory Assessment Respiratory Assessment - bath house attendant: Respiratory Tract Infection Hx - bath house attendant Hx Respiratory Tract Infection No 09/11/24 09:25 STOP Sleep Apnea STOP Sleep Apnea - bath house attendant: STOP Sleep Apnea - bath house attendant Hx Hypertension Yes: CONTROLLED WITH MED S 09/11/24 09:25 Hx Sleep Apnea No 09/11/24 09:25 CPAP BIPAP Do you snore loudly (louder No 09/11/24 09:25 than talking or can be heard Do you often feel tired/ No 09/11/24 09:25 fatigued/ sleepy during daytime? Has anyone observed you stop No 09/11/24 09:25 breathing during sleep? STOP Results Negative 09/11/24 09:25 QUESTION #5 FULL TEXT : Do you snore loudly (louder than talking or can be heard through closed doors)? 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 Specify any problems Hx of Preganancy in last 3 N/A 09/11/24 09:25 Months Nurse Filling Out Transfusion NBUCHER 09/11/24 09:25 & Questions: Date: 09/11/24 09/11/24 09:25 Time: 09/11/24 09:25 Patient unable to answer at this time (ie. confused, unrespo /Reproduction History /Reproductive History - bath house attendant: /Reproductive Hx- bath house attendant Hx Now No 09/11/24 09:25 Gestational Age (in weeks): EDC: Hx Hx Para Hx Section SAB No 09/11/24 09:25 [facility] Medical History (Updated 09/11/24 @ 09:32 by Zonia Louis) Wears hearing aid Loss of hearing Former smokeless tobacco use History of stress test Wears contact lenses Wears glasses Alcohol use Arthritis Hypertension Home Medications ?Medication ?Instructions ?Recorded ?Last Taken ?Type amlodipine 10 mg tablet 10 mg PO DAILY bp 06/16/20 07/11/23 History hydrochlorothiazide 25 mg tablet 25 mg PO DAILY bp 06/16/20 Unknown History losartan 100 mg tablet 100 mg PO DAILY bp 06/16/20 06/30/20 04:45 History 100 MG spironolactone 50 mg tablet 25 mg PO DAILY HYPERTENSION 09/11/24 Unknown History Allergy/AdvReac Type Severity Reaction Status Date / Time No Known Allergies Allergy Verified 09/11/24 09:22 Surgical History (Updated 09/11/24 @ 09:32 by Zonia Louis) History of total right knee replacement (TKR) Hx of fusion of cervical spine History of appendectomy History of colonoscopy History of total left knee replacement (TKR) Social History Smoking Status: Never smoker Audit: Pertinent Findings Pertinent Findings EKG Perinent findings: June 27, 2023. Normal sinus rhythm. Right bundle branch block. Recommendation Anesthesia Recommendation Anesthesia recommendation: OPTIMIZED for anesthesia
--- NOTE | 2024-09-14 07:03 | EKG12_ITS ---
Test Reason : PREOP Blood Pressure : */* mmHG Vent. Rate : 57 BPM Atrial Rate : 57 BPM P-R Int : 178 ms QRS Dur : 148 ms QT Int : 444 ms P-R-T Axes : 22 83 22 degrees QTcB Int : 432 ms Sinus bradycardia Right bundle branch block Abnormal ECG Confirmed by Ben Holland ([id number]), editor book LANCE SPRINGER ([id number]) on 09/14/2024 1:00:55 PM Referred By: Lam Wilson Confirmed By: Ben Holland
[2024-09-14 07:45] LABS: Absolute Lymphocyte Count 1.47 X10^3/uL (0.83-4.51); Absolute Neutrophil Count 4.3 X10^3/uL (2.0-7.7); Basophil# 0.01 X10^3/uL; Basophil% 0.1 % (0-1); Eosinophil# 0.19 X10^3/uL; Eosinophils% 2.8 % (0-5); Hematocrit 42.5 % (40-54); Hemoglobin 14.9 g/dL (13.0-16.5); Lymphocyte # 1.47 X10^3/ul (0.83-4.51); Lymphocyte % 21.8 % (19-41); Mean Corp Hgb Conc 35.1 g/dL (32-36); Mean Corpuscular Hgb 31.5 pg (27.0-32.0); Mean Corpuscular Volume 89.9 fL (80-94); Mean Platelet Vol. 10.1 fl (6.2-12.0); Monocyte# 0.77 X10^3/uL; Monocyte% 11.4 % (0-10); NRBC Flagged by Analyzer 0 % (0-5); Neutrophil # 4.28 X10^3/uL (2.7-7.7); Neutrophil % 63.5 % (47-70); Platelet Count 215 K/mm3 (150-450); RBC Distribution Width CV 12.4 % (11.6-14.6); RBC Distribution Width SD 40.9 fl (35.1-43.9); Red Blood Count 4.73 M/mm3 (4.6-6.2); White Blood Count 6.8 K/mm3 (4.4-11.0)
[2024-09-14 08:34] LABS: Anion Gap 3 (5-15); BUN 17 mg/dL (7-18); BUN/Creat Ratio 18.3 RATIO (10-20); Calcium,Total 9.5 mg/dL (8.5-10.1); Chloride 105 mmol/L (98-107); Creatinine, Serum 0.93 mg/dL (0.70-1.30); EST Glomerular Filtration Rate 87 mL/min (>60); Est Glom Filt Rate - Afr Amer 105 mL/min (>60); Glucose 142 mg/dL (74-106); Potassium 4.6 mmol/L (3.5-5.1); Sodium Level 138 mmol/L (136-145)
[2024-09-14 15:03] LABS: Magnesium 2.2 mg/dL (1.6-2.6)
== END 2024-10-01 06:30 | disposition home or self-care (01) ==
LOC: SDC 11-08 15:45
PROVIDERS: Anesthesiology; PCP Family Medicine; Referring Provider Specialist; Visit Provider Specialist
DX: Z01.818 Encounter for other preprocedural examination (principal)
CPT/HCPCS: 36415; 80048; 82040; 83735; 85025; 87081; 93005

== ENCOUNTER 2024-12-31 13:29 | Observation (INO) | payer OTHER, MEDICARE, SELFPAY ==
--- NOTE | 2024-12-06 22:23 | PAT.ANESEVAL ---
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 When Was Last Pacemaker Check QUESTION #4 FULL TEXT: You/Your Family Experience fever (hyperthermia) with Anesthesia Last Oral Intake Last Oral intake: Last Oral Intake NPO since Meds taken in AM with sips of water? Meds patient instructed to take am of surgery PONV PONV - painting worker: PONV - painting worker Female No 12/05/24 13:43 HX of Motion Sickness No 12/05/24 13:43 HX of N/V After Surgery No 12/05/24 13:43 Non-Smoker Yes 12/05/24 13:43 Duration of Surgery greater Yes 12/05/24 13:43 than 60 minutes Number of Risk Factors 2 12/05/24 13:43 PONV Score Moderate Risk 12/05/24 13:43 Height & Weight Height & Weight: Anesthesia: Height & Weight Height 5 ft 9 in 07/11/23 06:26 Respiratory Assessment Respiratory Assessment - painting worker: Respiratory Tract Infection Hx - painting worker Hx Respiratory Tract Infection No 12/05/24 13:43 STOP Sleep Apnea STOP Sleep Apnea - painting worker: STOP Sleep Apnea - painting worker Hx Hypertension Yes: CONTROLLED WITH MED 12/05/24 13:43 Hx Sleep Apnea No 12/05/24 13:43 CPAP BIPAP Do you snore loudly (louder Yes 12/05/24 13:43 than talking or can be heard Do you often feel tired/ No 12/05/24 13:43 fatigued/ sleepy during daytime? Has anyone observed you stop No 12/05/24 13:43 breathing during sleep? STOP Results Positive 12/05/24 13:43 QUESTION #5 FULL TEXT : Do you snore loudly (louder than talking or can be heard through closed doors)? 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 Specify any problems Hx of Preganancy in last 3 N/A 12/05/24 13:43 Months Nurse Filling Out Transfusion DSCHRIBER 12/05/24 13:43 & Questions: Date: 12/05/24 12/05/24 13:43 Time: 13:45 12/05/24 13:43 Patient unable to answer at this time (ie. confused, unrespo /Reproduction History /Reproductive History - painting worker: /Reproductive Hx- painting worker Hx Now No 12/05/24 13:43 Gestational Age (in weeks): EDC: Hx Hx Para Hx Section SAB No 12/05/24 13:43 [facility] Medical History (Updated 12/05/24 @ 13:55 by Romi Suárez) History of stress test Cardiology follow-up encounter Wears hearing aid Loss of hearing Former smokeless tobacco use Wears contact lenses Wears glasses Alcohol use Arthritis Hypertension Home Medications ?Medication ?Instructions ?Recorded ?Last Taken ?Type amlodipine 10 mg tablet 10 mg PO DAILY bp 06/16/20 07/11/23 History hydrochlorothiazide 25 mg tablet 25 mg PO DAILY bp 06/16/20 Unknown History losartan 100 mg tablet 100 mg PO DAILY bp 06/16/20 06/30/20 04:45 History 100 MG spironolactone 50 mg tablet 25 mg PO DAILY HYPERTENSION 09/11/24 Unknown History Allergy/AdvReac Type Severity Reaction Status Date / Time No Known Allergies Allergy Verified 12/05/24 13:38 Surgical History (Updated 12/05/24 @ 13:55 by oRmi Suárez) History of cardiac catheterization History of total right knee replacement (TKR) Hx of fusion of cervical spine History of appendectomy History of colonoscopy History of total left knee replacement (TKR) Social History Smoking Status: Former smoker Audit: Pertinent Findings Pertinent Findings EKG Perinent findings: 10/01/2024. Normal sinus rhythm. Right bundle branch block. September 14, 2024. Sinus bradycardia 57 bpm. Right bundle branch block. Stress test pertinent findings: September 28, 2024. Ejection fraction of 63%. 10 to 20% ischemia in the LAD territory. 10 to 20% ischemia in the RCA territory. Echo (EF%) pertinent findings: September 27, 2024. Ejection fraction 56%. Ascending aorta is dilated to 3.9 cm. No significant valvular disease. No pulmonary hypertension. Consult pertinent findings: October 01, 2024. Dr. Moya. 1. Chest discomfort-significant abnormal nuclear stress test in LAD and RCA territories. Patient needs cardiac cath. 2. Hypertension-controlled. 3. Aortic root dilation?nonsignificant. Recommendation Anesthesia Recommendation Anesthesia recommendation: F/U recommended (Cardiology note from September 2024 recommends cardiac cath. I did not see that it this has been done. Please verify with the patient that cardiac cath has been done and get results please.)
[2024-12-14 06:53] LABS: Absolute Lymphocyte Count 1.57 X10^3/uL (0.83-4.51); Absolute Neutrophil Count 4.9 X10^3/uL (2.0-7.7); Basophil# 0.01 X10^3/uL; Basophil% 0.1 % (0-1); Eosinophils% 2.6 % (0-5); Hematocrit 44.1 % (40-54); Hemoglobin 15.3 g/dL (13.0-16.5); Lymphocyte # 1.57 X10^3/ul (0.83-4.51); Lymphocyte % 20.8 % (19-41); Mean Corp Hgb Conc 34.7 g/dL (32-36); Mean Corpuscular Hgb 31.1 pg (27.0-32.0); Mean Corpuscular Volume 89.6 fL (80-94); Mean Platelet Vol. 10.5 fl (6.2-12.0); Monocyte% 10.6 % (0-10); NRBC Flagged by Analyzer 0 % (0-5); Neutrophil # 4.93 X10^3/uL (2.7-7.7); Neutrophil % 65.4 % (47-70); Platelet Count 222 K/mm3 (150-450); RBC Distribution Width CV 12.1 % (11.6-14.6); RBC Distribution Width SD 39.8 fl (35.1-43.9); Red Blood Count 4.92 M/mm3 (4.6-6.2); White Blood Count 7.6 K/mm3 (4.4-11.0)
[2024-12-14 07:07] LABS: Magnesium 2.1 mg/dL (1.5-2.2)
[2024-12-14 07:19] LABS: Albumin, Serum 4.4 g/dL (3.4-4.8); Anion Gap 13 (5-15); BUN 20 mg/dL (4-19); BUN/Creat Ratio 22.5 RATIO (10-20); Calcium,Total 9.5 mg/dL (7.6-11.0); Carbon Dioxide 21.6 mmol/L (21.0-32.0); Chloride 103 mmol/L (98-108); Creatinine, Serum 0.91 mg/dL (0.70-1.20); EST Glomerular Filtration Rate 94 (>60); Glucose 144 mg/dL (70-99); Potassium 4.7 mmol/L (3.3-5.1); Sodium Level 137 mmol/L (133-145)
--- NOTE | 2024-12-14 16:05 | PAT.ANE_ITS ---
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 When Was Last Pacemaker Check QUESTION #4 FULL TEXT: You/Your Family Experience fever (hyperthermia) with Anesthesia Last Oral Intake Last Oral intake: Last Oral Intake NPO since Meds taken in AM with sips of water? Meds patient instructed to take am of surgery PONV PONV - regional vice president life sales: PONV - regional vice president life sales Female No 12/05/24 13:43 HX of Motion Sickness No 12/05/24 13:43 HX of N/V After Surgery No 12/05/24 13:43 Non-Smoker Yes 12/05/24 13:43 Duration of Surgery greater Yes 12/05/24 13:43 than 60 minutes Number of Risk Factors 2 12/05/24 13:43 PONV Score Moderate Risk 12/05/24 13:43 Height & Weight Height & Weight: Anesthesia: Height & Weight Height 5 ft 9 in 07/11/23 06:26 Respiratory Assessment Respiratory Assessment - regional vice president life sales: Respiratory Tract Infection Hx - regional vice president life sales Hx Respiratory Tract Infection No 12/05/24 13:43 STOP Sleep Apnea STOP Sleep Apnea - regional vice president life sales: STOP Sleep Apnea - regional vice president life sales Hx Hypertension Yes: CONTROLLED WITH MED 12/05/24 13:43 Hx Sleep Apnea No 12/05/24 13:43 CPAP BIPAP Do you snore loudly (louder Yes 12/05/24 13:43 than talking or can be heard Do you often feel tired/ No 12/05/24 13:43 fatigued/ sleepy during daytime? Has anyone observed you stop No 12/05/24 13:43 breathing during sleep? STOP Results Positive 12/05/24 13:43 QUESTION #5 FULL TEXT : Do you snore loudly (louder than talking or can be heard through closed doors)? 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 Specify any problems Hx of Preganancy in last 3 N/A 12/05/24 13:43 Months Nurse Filling Out Transfusion DSCHRIBER 12/05/24 13:43 & Questions: Date: 12/05/24 12/05/24 13:43 Time: 13:45 12/05/24 13:43 Patient unable to answer at this time (ie. confused, unrespo /Reproduction History /Reproductive History - regional vice president life sales: /Reproductive Hx- regional vice president life sales Hx Now No 12/05/24 13:43 Gestational Age (in weeks): EDC: Hx Hx Para Hx Section SAB No 12/05/24 13:43 [facility] Medical History (Updated 12/05/24 @ 13:55 by Romi Suárez) History of stress test Cardiology follow-up encounter Wears hearing aid Loss of hearing Former smokeless tobacco use Wears contact lenses Wears glasses Alcohol use Arthritis Hypertension Home Medications ?Medication ?Instructions ?Recorded ?Last Taken ?Type amlodipine 10 mg tablet 10 mg PO DAILY bp 06/16/20 1 09/10/22 History hydrochlorothiazide 25 mg tablet 25 mg PO DAILY bp 08/24 Unknown History losartan 100 mg tablet 100 mg PO DAILY bp 06/16/20 06/30/20 04:45 History 100 MG spironolactone 50 mg tablet 25 mg PO DAILY HYPERTENSIO N 09/11/24 Unknown History Allergy/AdvReac Type Severity Reaction Status Date / Time No Known Allergies Allergy Verified 12/05/24 13:38 Surgical History (Updated 12/05/24 @ 13:55 by Romi Suárez) History of cardiac catheterization History of total right knee replacement (TKR) Hx of fusion of cervical spine History of appendectomy History of colonoscopy History of total left knee replacement (TKR) Social History Smoking Status: Former smoker Audit: Pertinent Findings HISTORY of Pertinent Findings History of Pertinent Findings: EKG Pertinent Findings EKG Perinent findings 10/01/2024. Normal sinus 12/07/24 17:42 rhythm. Right bundle branch block. September 14, 2024. Sinus bradycardia 57 bpm. Right bundle branch block. Stress Test Pertinent Findings Stress test pertinent findings September 28, 2024. Ejection 12/07/24 17:47 fraction of 63%. 10 to 20% ischemia in the LAD territory. 10 to 20% ischemia in the RCA territory. Echo Pertinent Findings Echo (EF%) pertinent findings September 27, 2024. Ejection 12/07/24 17:47 fraction 56%. Ascending aorta is dilated to 3.9 cm. No significant valvular disease. No pulmonary hypertension. Consult Pertinent Findings Consult pertinent findings October 01, 2024. 12/07/24 17:47 Moya. 1. Chest discomfort- significant abnormal nuclear stress test in LAD and RCA territories. Patient needs cardiac cath. 2. Hypertension-controlled. 3. Aortic root dilation? nonsignificant. Pertinent Findings Heart catheterization pertinent findings: 10/03/2024. [facility] heart catheterization. Normal heart catheterization. No stenosis noted. EF 55%. Normal wall motion. Recommendation Anesthesia Recommendation Anesthesia recommendation: OPTIMIZED for anesthesia
--- NOTE | 2024-12-27 06:46 | HP.PCM_ITS ---
History and Physical History and Physical Patient Name: Fabian Gotti : 1960From:? FARIDA MARROQUIN PA-C DATE OF PRE-OPERATIVE EXAM: 12/26/2024 DATE OF SURGERY:? 12/31/2024 SCHEDULED PROCEDURE:? Revision right total knee arthroplasty with polyethylene exchange, scar debridement, and loose body removal HISTORY OF PRESENT ILLNESS: Preoperative history and physical exam was performed on December 26, 2024.? This is a 64-year-old male who underwent a previous right total knee arthroplasty by Dr. Ben Su on July 11, 2023.? He has also undergone a previous left total knee arthroplasty on June 30, 2020.? He has no complaints of the left knee.? With regards to the right knee patient has had pain ever since the right total knee arthroplasty.? His pain currently is constant.? Pain can reach 9/10 with activities.? He gets intermittent swelling.? Pain is increased with going up and down steps, walking, and prolonged sitting.? He does feel weakness going up and down steps with the right knee compared to the left.? Patient has tripped/stumbled due to pain.? He feels that there is a constant band wrapped around his right knee.? He has tried previous therapy without relief.? Patient has been followed by Dr. Lam Wilson.? Ultrasound has been obtained which revealed intact soft tissue structures but evidence of effusion and synovial thi ckening of the retinaculum medially and laterally.? Patient has had previous aspiration and infection workup which was negative.? On x-rays there is been a stable ossified fragment in the posterior knee.? Patient denies any recent fevers, chills or recent infections.? He has obtain surgical clearance from the primary care provider Bettina Parra CNP and home companion Dr. Zamudio.? Patient had an abnormal stress test but underwent heart catheterization which was normal.? Cardiology states patient can follow-up on an as-needed basis.? Patient has medical history pertinent for hypertension, history of kidney stones, hyperlipidemia, benign prostatic hyperplasia, and vitamin D deficiency.? PCP documentation states snoring and suspected possible sleep apnea.? Patient denies past history of DVT or pulmonary embolism.? After failing conservative measures and discussing all treatment options was Dr. Lam Wilson, the patient does wish to proceed with a right revision total knee arthroplasty with polyethylene exchange, scar debridement and loose body removal. ? REVIEW OF SYSTEMS: Review Of Systems: Constitutional: Denies change in appetite, fever and weight change. Cardiovasular: Denies chest pain, heart murmur and irregular heartbeat. Respiratory: Denies cough, pneumonia, shortness of breath, tuberculosis and wheezing. Gastrointestinal: Denies constipation, diarrhea, heartburn, nausea, rectal itching, bloody stools and vomiting. Genitourinary: Denies incontinence. Musculoskeletal: Reports gait disturbance, leg swelling, pain, trouble walking and weakness. Skin: Denies Raynaud's, history of shingles and tattoo. Neurological: Reports numbness/tingling but denies ambulatory dysfunction, dizziness and tremor. Psychiatric: Denies anxiety, insomnia and stress. Hematologic/Lymphatic: Denies anemia, bleeding/bruising tendency and past transfusion. Reviewed and updated. PAST MEDICAL HISTORY: Advance Care Plan: Other Directive, POA Effective Date: 05/27/2020 Other Directive, LIVING WILL Effective Date: 05/27/2020 Past Medical History: Medical Problems: Arthritis, Hard of Hearing, High Blood Pressure Covid-19 Vaccinated - (11/20/2020)(12/18/2020) Right Bundle Branch Block - minimal per home companion clearance Kidney Stones, impaired fasting glucose, hyperlipidemia aortic root dilation - (09/2024) low HDL, Hypercholesterolemia, vitamin D deficiency, Benign Prostatic Hyperplasia, Snoring Accidents: Sports Related Injury - (1973) LT WRIST FX Sports Related Injury - (1978) DISLOCATED LEFT ELBOW Fracture - (1976) RIB Fall - (09/16/2020) Surgical Hx: Cervical Fusion - 2005 &2009, DR CROWE @ [facility] Appendectomy - (2010) @ [facility] Knee Replacement Lt - (06/30/2020) Dr Shannan Su @ [facility] RT Knee, Total Joint Replacement - (07/11/2023) Dr Shannan Su @ [facility] Heart cath - (09/2024) [facility] Anesthesia Complications: None Assistive Devices: Contacts Reviewed and updated. 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 Personal Habits:? Cigarette Use: Never Smoked Cigarettes.Smokeless Tobacco: Former user.E-Cigarette Use: Never used.Alcohol: Weekly use.Drug Use: Denies Use.Enjoy Exercising: Exercises 1-3 x/month. Reviewed and updated. VITALS: Ht: 70 Wt: 263lb Wt k.297 BMI: 37.7 BP: 132/74 Pulse: 61 Resp: 17 T: 97.7 T: 36.5C Pain Level: 9 O2SatR: 96 ALLERGIES: No Known Drug Allergy MEDICATIONS: Losartan Potassium 100 mg 1 by mouth every day, Amlodipine Besylate 10 mg 1 by mouth every day, Hydrochlorothiazide 25 mg 1 by mouth every day, Spironolactone 25 mg 1 by mouth every day PRE-OP EXAM: General appearance:NORMAL? Other: Eyes: Conjunctivae and lids: NORMAL? Pupils: ERR Ears, Nose, Mouth, and Throat: NORMAL? Other: Inspection of lips, teeth and gums: NORMAL?? Other: Neck: Examination of neck: no masses noted. Respiratory: Assessment of respiratory effort: NORMAL?? Other: ? Auscultation of lungs: clear to auscultation no wheezes, rhonchi or rales. Cardiovascular:? Auscultation of heart: regular rate and rhythm, no murmurs, gallops or rubs. PHYSICAL EXAMINATION: On exam of the right knee previous incision is well healed.? Moderate effusion.? Tenderness to palpation along the medial and lateral right knee.? Range of motion: 0 extension to 120 flexion.? Sensation intact to light touch to bilateral lower extremities.? Stable with anterior/posterior drawer exam and varus/valgus stress testing. IMAGING STUDIES: Previous x-rays of the right knee reveal a well aligned stable total knee arthroplasty which is well fixed.? Stable ossified fragment in the posterior knee. Previous ultrasound shows thickening of the joint lining consistent with inflammatory process without any tissue abnormalities Previous knee aspiration and infection workup negative IMPRESSION: 1.? Painful right total knee arthroplasty with loose body 2.? Hypertension 3.? Benign prostatic hyperplasia 4.? History of kidney stones 5.? Hyperlipidemia 6.? Vitamin D deficiency 7.? Snoring with suspected sleep apnea 8.? Obesity with BMI 37.7 PLAN: Dr. Lam Wilson did discuss and review with the patient all treatment options including surgical versus nonsurgical options.? I will continue plan established by Dr. Lam Wilson.? Patient does wish to proceed with the above-stated procedure.? Potential risks, benefits, and complications of the procedure were d iscussed in detail including but not limited to , infection, nerve and blood vessel damage, persistent pain, numbness, tingling, paresthesias, blood clot, pulmonary embolism, and requirement for possible further surgery.? The patient expressed full understanding and has no further questions for the doctor.? Patient does agree to proceed with the above-stated procedure and has signed the surgery consent form. POST-OP MEDICATION PLAN: Pain Medications: Postoperative pain regimen will be initiated by Dr. Lam Wilson in the hospital.? Patient will bring his walker to the hospital.? Discus sed with the patient postoperative use of doxycycline in which she has more sensitive to the sunlight and should take appropriate precautions.? He will be on this for 2 weeks postoperatively.? Recommend probiotics while on the antibiotic. DVT Prophylaxis Plan:? Aspirin 81 mg twice daily for 4 weeks postoperatively.? Denies past history of DVT or pulmonary embolism.? Patient will continue with FRANCISCO J camacho for 2 weeks postoperatively. This dictation was created using voice recognition software. Phonetic and/or grammatical errors may exist. ___? I have re-examined the patient.? There are no clinical changes since date of exam. ___? See progress notes for changes. ___? Dictated on admission Date: ? Time: Signature:
[2024-12-31] VITALS (13 sets, daily range): BP systolic 104–173; BP diastolic 53–95; PULSE 42–63; RESP 14–18; TEMP 36.1–36.6; O2SAT 85–100; BMI 39.2
--- NOTE | 2024-12-31 10:10 | PRE.ANES_ITS ---
ASA Classification* ASA Classification ASA Classification: 3 Assessment & Plan Anesthesia* Anesthesia Assessment Anesthesia Assessment: Discussed sedation and/or anesthesia options, risks, benefits, and alternatives with patient/parents/legal guardian/POA. Questions invited. The patient/parents/legal guardian/POA seems to understand and agrees to proceed with anesthesia plan. Reviewed the physical assessment, medical history, allergy history and patient home medications list prior to surgery/procedure/anesthetic and documented any changes. Performed airway and anesthesia risk assessments. Anesthesia Type Anesthesia Type: Spinal and Block Anesthesia Focused Assessment* Airway Assessment Mouth opens: >3 cm Mallampati Score: II Focused Labs Anesthesia Preop lab: CBC WBC 7.6 K/mm3 (4.4-11.0) 12/14/24 06:03 12/14/24 RBC 4.92 M/mm3 (4.6-6.2) 12/14/24 06:03 12/14/24 Hgb 15.3 g/dL (13.0-16.5) 12/14/24 06:03 12/14/24 Hct 44.1 % (40-54) 12/14/24 06:03 12/14/24 Plt Count 222 K/mm3 (150-450) 12/14/24 06:03 12/14/24 CHEMISTRY Potassium 4.7 mmol/L (3.3-5.1) 12/14/24 06:03 12/14/24 Sodium 137 mmol/L (133-145) 12/14/24 06:03 12/14/24 Magnesium 2.1 mg/dL (1.5-2.2) 12/14/24 06:03 12/14/24 BUN 20 mg/dL (4-19) H 12/14/24 06:03 12/14/24 Creatinine 0.91 mg/dL (0.70-1.20) 12/14/24 06:03 12/14/24 Glucose 144 mg/dL (70-99) H 12/14/24 06:03 12/14/24 POC Glucose 191 mg/dL (74-106) H 07/11/23 05:53 07/11/23 COAG Pre-Assessment Diagnosis/Proposed Procedure Planned Operative Procedure(s): RIGHT TOTAL KNEE POLYETHYLENE EXCHANGE SCAR DEBRIDEMENT LOOSE BODY REMOVAL Anesthesia History 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 When Was Last Pacemaker Check QUESTION #4 FULL TEXT: You/Your Family Experience fever (hyperthermia) with Anesthesia Last Oral Intake Last Oral intake: Last Oral Intake NPO since Meds taken in AM with sips of water? Meds patient instructed to take am of surgery PONV PONV - senior sql server developer: PONV - senior sql server developer Female No 12/05/24 13:43 HX of Motion Sickness No 12/05/24 13:43 HX of N/V After Surgery No 12/05/24 13:43 Non-Smoker Yes 12/05/24 13:43 Duration of Surgery greater Yes 12/05/24 13:43 than 60 minutes Number of Risk Factors 2 12/05/24 13:43 PONV Score Moderate Risk 12/05/24 13:43 Height & Weight Height & Weight: Anesthesia: Height & Weight Height 5 ft 9 in 07/11/23 06:26 Respiratory Assessment Respiratory Assessment - senior sql server developer: Respiratory Tract Infection Hx - senior sql server developer Hx Respiratory Tract Infection No 12/05/24 13:43 STOP Sleep Apnea STOP Sleep Apnea - senior sql server developer: STOP Sleep Apnea - senior sql server developer Hx Hypertension Yes: CONTROLLED WITH MED 12/05/24 13:43 Hx Sleep Apnea No 12/05/24 13:43 CPAP BIPAP Do you snore loudly (louder Yes 12/05/24 13:43 than talking or can be heard Do you often feel tired/ No 12/05/24 13:43 fatigued/ sleepy during daytime? Has anyone observed you stop No 12/05/24 13:43 breathing during sleep? STOP Results Positive 12/05/24 13:43 QUESTION #5 FULL TEXT : Do you snore loudly (louder than talking or can be heard through closed doors)? Tobacco Use History Tobacco Use History - senior sql server developer: Tobacco Use History - senior sql server developer Tobacco Use Smoking Status Former smoker 12/05/24 13:43 Hx Tobacco Use Yes: USED TO CHEW, QUIT 6 12/05/24 13:43 MONTHS AGO Years Smoking Packs Smoked per Day Smoking Cessation Date was Yes - quit smoking within 15 12/05/24 13:43 within the last 15 years years Hx Smoking Cessation Date Hx Smoking Cessation Counseling Hematologic Medial History Hematologic Hx - senior sql server developer: Hematologic Medical Hx - food tester Hx of Blood Transfusion No 12/05/24 13:43 Hx of Transfusion in last 3 No 12/05/24 13:43 Months Date of Last Transfusion (if within last 3 months) Ever experience any problems No 12/05/24 13:43 with transfusion(s)? Specify any problems Hx of Preganancy in last 3 N/A 12/05/24 13:43 Months Nurse Filling Out Transfusion DSCHRIBER 12/05/24 13:43 & Questions: Date: 12/05/24 12/05/24 13:43 Time: 13:45 12/05/24 13:43 Patient unable to answer at this time (ie. confused, unrespo /Reproduction History /Reproductive History - senior sql server developer: /Reproductive Hx- senior sql server developer Hx Now No 12/05/24 13:43 Gestational Age (in weeks): EDC: Hx Hx Para Hx Section SAB No 12/05/24 13:43 Active Medications Active Medications: Current Medications Generic Name Dose Route Start Last Admin Trade Name Freq PRN Reason Stop Dose Admin Acetaminophen 1,000 mg 12/31/24 12:00 Acetaminophen 500 Mg Tablet PO 12/31/24 12:01 X1 ONE Celecoxib 400 mg 12/31/24 12:00 Celecoxib 200 Mg Capsule PO 12/31/24 12:01 X1 ONE Sodium Chloride 77.4 ml/ 0 ml 12/31/24 12:00 Ropivacaine 200 mg/ OPERA.SITE 12/31/24 12:01 Epinephrine HCl 0.6 mg/ X1 ONE Ketorolac Tromethamine 30 mg/ Morphine Sulfate 5 mg Dexamethasone Sodium Phosphate 10 mg 12/31/24 12:00 Dexamethasone 10 Mg/Ml Vial IV 12/31/24 12:01 X1 ONE Gabapentin 600 mg 12/31/24 12:00 Gabapentin 600 Mg Tablet PO 12/31/24 12:01 X1 ONE Lactated Ringer's 1,000 mls @ 999 mls/hr 12/31/24 12:00 IV 12/31/24 13:00 .Q1H1M HARRIETT Cefazolin Sodium 2 gm/ N/A 20 mls @ 400 mls/hr 12/31/24 12:00 IV 12/31/24 12:02 PREOP ONE Tranexamic Acid 1,000 mg/ 110 mls @ 660 mls/hr 12/31/24 12:00 Sodium Chloride IV 12/31/24 12:09 X1 ONE Tranexamic Acid 1,000 mg/ 110 mls @ 660 mls/hr 12/31/24 13:00 Sodium Chloride IV 12/31/24 13:09 X1 ONE Lactated Ringer's 1,000 mls @ 999 mls/hr 12/31/24 13:00 IV 12/31/24 14:00 .Q1H1M HARRIETT Lactated Ringer's 1,000 mls @ 125 mls/hr 12/31/24 14:00 IV 12/31/24 21:59 .Q8H HARRIETT Magnesium Sulfate 1 gm/ 102 mls @ 408 mls/hr 12/31/24 12:00 Dextrose IV 12/31/24 12:14 X1 ONE Insulin Human Lispro 1 - 6 unit 12/31/24 12:00 Insulin Lispro 100 Unit/Ml Insuln.Pen SC 12/31/24 18:00 Q4H PRN PRN BG>/= 180, SEE PROTOCOL Protocol PFSH Medical History History of stress test Cardiology follow-up encounter Wears hearing aid Loss of hearing Former smokeless tobacco use Wears contact lenses Wears glasses Alcohol use Arthritis Hypertension Home Medications ?Medication ?Instructions ?Recorded ?Last Taken ?Type amlodipine 10 mg tablet 10 mg PO DAILY bp 06/16/20 1 09/10/22 History hydrochlorothiazide 25 mg tablet 25 mg PO DAILY bp 08/24 Unknown History losartan 100 mg tablet 100 mg PO DAILY bp 06/16/20 06/30/20 04:45 History 100 MG spironolactone 50 mg tablet 25 mg PO DAILY HYPERTENSIO N 09/11/24 Unknown History Allergy/AdvReac Type Severity Reaction Status Date / Time No Known Allergies Allergy Verified 12/05/24 13:38 Surgical History History of cardiac catheterization History of total right knee replacement (TKR) Hx of fusion of cervical spine History of appendectomy History of colonoscopy History of total left knee replacement (TKR) Social History Smoking Status: Former smoker Review of Systems (Anesthesia) ROS Narrative System reviewed and no additional complaints, except as documented.
[2024-12-31] MEDS: Lactated Ringers 1,000 ML 999 ML IV ×2 (10:34→13:45)
[2024-12-31] MEDS: Magnesium 1 GM over 15 mins IV (10:34)
[2024-12-31] MEDS: Acetaminophen 500 MG Tablet 1000 MG PO ×2 (10:37→21:41)
[2024-12-31] MEDS: Gabapentin 600 MG Tablet PO (10:37)
[2024-12-31] MEDS: Celecoxib 200 MG Capsule 400 MG PO (10:38)
[2024-12-31 11:00] LABS: Bedside Glucose 155 mg/dL (74-106)
[2024-12-31] MEDS: Cefazolin 2 GM in Syringe 10 ML IV (11:52)
[2024-12-31] MEDS: TXA 1000mg in NS100 100ml (IVPB at Incision) 660 MG IV (11:57)
[2024-12-31] MEDS: dexAMETHasone 10 MG/ML Vial IV (12:08)
[2024-12-31] MEDS: JPS (Morphine 10mg/ml) OPERA.SITE (13:00)
[2024-12-31] MEDS: TXA 1000mg in NS100 100ml (IVPB at Closure) 660 MG IV (13:08)
--- NOTE | 2024-12-31 13:31 | PCM.OPRPT ---
Operative Report (Standard) Operative Information Date of Procedure: 12/31/24 Pre-Operative Diagnosis: Painful right total knee replacement, crepitus, possible loose body Post-Operative Diagnosis: Right painful total knee replacement, crepitus, excessive scar tissue formation Surgery/Procedure Performed: Reviewed fish skinning machine feeder: Yes Physical Testing Supervisor: Eli Bill Tasks completed by first coat sander: Other (See body of operative report) Additional automotive service assistant?: Yes Additional Binding Stitcher #2: Stair,Hernandez Tasks completed by automotive service assistant #2: Opening & closing Additional automotive service assistant?: No Type of Anesthesia: Spinal RN Documented Start/Stop Times: Operation Date: 12/31/24 12:00 Case Time Into Pre-Op 12/31/24 10:15 Anesthesia Start 12/31/24 11:48 Into Room 12/31/24 11:48 Out of Pre-Op 12/31/24 11:48 Procedure Start 12/31/24 12:10 Procedure End 12/31/24 13:32 Anesthesia End 12/31/24 13:36 Out of Room 12/31/24 13:36 Into Recovery 12/31/24 13:40 Procedure Start Time: 12:10 Procedure Stop Time: 13:32 Select all DRAINS/GRAFTS/IMPLANTS that apply: Prosthetic device Prosthetic device details: [place] X3 polyethylene size five 9 mm Special Medications: Ancef, TXA, joint cocktail Estimated Blood Loss: 50 mL Fluids Replaced: 1500 mm crystalloid Specimen collected: No Description of surgery: On the date of procedure patient's R lower extremity was marked in the preoperative area. The patient was then taken back to the operating room where the patient was placed on the table in the supine position. All bony prominences were identified a well-padded. Anesthesia assumed control of the C-spine and airway and remained controlled throughout the remainder of the procedure. A tourniquet was placed on the operative thigh and the leg was prepped in a sterile fashion. The surgeon then scrubbed at this time .Upon reentering the room left lower extremity was draped in a standard orthopedic fashion. A timeout was then called and everyone agreed upon the side, the site, the procedure to be performed, patient's identity and antibiotics given. A midline skin incision was made and sharp dissection was taken down through skin subcutaneous tissue and fat. Appropriate flaps were elevated medially and laterally. The previous arthrotomy was identified and the standard medial parapatellar incision was made and the patella was subluxed laterally. The standard deep MCL release was done. Prior to subluxing the patella the knee had been taken through range of motion and lateral crepitus could be recreated. Knee was placed back in extension. At this point an aggressive synovectomy commenced. Our attention was first turned towards the subpatellar pouch and all synovium and tissues were debrided. Along the lateral condyle there was a area of robust firm scar tissue. We removed this with Bovie cautery. Once we did this there was a small ridge of bone which still resided. This was carefully curetted down smoothed with the edge of the implant. Upon doing these 2 things we are able to take the knee through range of motion and lateral crepitus seem to be significantly resolved. The remainder of the lateral synovium was debrided as well as any bulky and robust scar tissue. We then directed our attention towards medial lateral gutters were these tissues were aggressively debrided. Again along the medial side of the knee there was a little bit of a mismatch on the size and the edges of bone. Any residual bone spurs were carefully filed down using a curette to smooth edges then allowed for knee range of motion without crepitus or snapping of the soft tissues. Knee was then flexed up the polyethylene was removed. Once polyethylene was removed we did the remainder of the synovium in the medial and lateral gutters and along the lateral structures and MCL. We then debrided the posterior knee. We carefully explored the posterior knee into the knee through range of motion. No loose bodies were noted in the knee throughout this. We are able to palpate in the back of the knee with our digit and again no loose bodies could be felt. After she was administered reexamining the the radiographs the area of suspicion on the knee was determined to be a flabella. Once we had completed our synovectomy and were happy with the joint, 6 L of normal saline were then irrigated throughout the wound with low-pressure lavage and the wound was once again explored. All remaining tissue that was suspicious was seen in the wound was once again irrigated with normal saline. We again trialed the polyethylene and the 9 mm polyethylene gave us most appropriate fit and stability. 9 mm polyethylene was then opened and put back into place after appropriate trialing. Tourniquet was let down and hemostasis was obtained as well as possible. Knee was once more taken through range of motion and preoperative crepitus seem to be resolved with today's solutions. Again there was no evidence of loose body at this stage. Once the final components were placed the wound was copiously irrigated with normal saline solution. The wound was closed in a layer lewis fashion using #1 vicryl interrupted sutures for the arthrotomy, #1 strata fix runners proximally and distally to close the arthrotomy. 2-0 interrupted Vicryl for the subcuticular layer and alisson for final skin closure. A sterile compressive dressing was then placed. The patient was then awakened from anesthesia, transferred to the [facility] and transferred to the PACU for recovery. Post op plan Weightbearing as tolerated, range of motion as tolerated resume physical therapy as tolerated. Aspirin 81 mg p.o. twice daily for DVT prophylaxis. Due to revision nature of the surgery patient replaced on doxycycline 100 mg p.o. twice daily for extended oral antibiotics. My physician automotive service assistant was a vital part of this case, they was important because there was not another skilled set of hands available to their training and aptitude needed for safe and appropriate completion of this case. They were important in appropriate retraction during the case, and protection of soft tissues during bony cuts. In particular the experience and skill of this automotive service assistant made for safe retraction and exposure during implantation of medical implants without damage or fracture to vital soft tissues or structures. His intimate knowledge of the case and my steps aided in safe and expedient completion of the procedure as well as appropriate position of the leg during the case. He was also vital in assisting with closure and placement of the dressing under my direct supervision. Surgical Findings: Stable knee. Good patella tracking. With debridement preoperative crepitus seem to be fully resolved. Complications Complications: No Admit VTE Documentation VTE Mechan Device Prophylaxis: SCD's and Thigh High FRANCISCO J Hose VTE Pharm Prophylaxis ordered?: Yes
--- NOTE | 2024-12-31 13:50 | PCM.POST.ANE ---
Anesthesia: Postop Eval I Current Vital Signs Temperature: 97.9 F Pulse Rate: 44 Blood Pressure: 104/65 Respiratory Rate: 16 Pulse Ox: 99 Oxygen Delivery Method: Venturi Mask Oxygen Flow Rate (L/min): 6 Assessment Airway patent: Yes Spontaneous unlabored respirations: Yes Mental status: Awake nausea: No Vomiting: No Anesthesia Complication: No Fluid Hydration Crystalloid volume administer (ml): 1,400 Total IV fluid infused: 1,400 Progress Note Anesthesia document: Postop Eval 1 completed: Yes
--- NOTE | 2024-12-31 13:55 | RAD_ITS ---
PROCEDURE: KNEE 1 OR 2 VIEWS 12/31/2024 REASON FOR EXAM: RIGHT KNEE POLYEXCHANGE TECHNIQUE: Two views of the right knee COMPARISON: July 11, 2023 FINDINGS: There is a total knee prosthesis in position. Soft tissue air and surgical alisson are noted consistent with recent surgery. RAD/Knee 1 or 2 Views IMPRESSION: Hardware in position. Reading Location: [facility]
--- NOTE | 2024-12-31 14:52 | POSTOPAN2_ITS ---
Anesthesia Postop Eval I Sum Postop Eval Completion status Anesthesia document: Postop Eval 1 completed: Yes Anesthesia Postop Eval I Summary Anesthesia Postop Eval I Summary: Anesthesia Postop Eval I: Assessment Summary Airway patent Yes 12/31/24 13:51 CARPENTER WOODEN TANK ERECTING.[email or web address] Spontaneous unlabored Yes 12/31/24 13:51 CARPENTER WOODEN TANK ERECTING.LMIL respirations Mental status Awake 12/31/24 13:51 CARPENTER WOODEN TANK ERECTING.LMIL nausea No 12/31/24 13:51 CARPENTER WOODEN TANK ERECTING.LMIL Vomiting No 12/31/24 13:51 CARPENTER WOODEN TANK ERECTING.LMIL Anesthesia Postop Eval I: Fluid Summary Crystalloid volume administer 1,400 12/31/24 13:51 CARPENTER WOODEN TANK ERECTING.LMIL (ml) Colloids volume administered ( ml) Blood Product volume administered (ml) Total IV fluid infused 1,400 12/31/24 13:51 CARPENTER WOODEN TANK ERECTING.LMIL Anesthesia Postop Eval I: Summary Notes Anesthesia Complication No 12/31/24 13:51 CARPENTER WOODEN TANK ERECTING.LMIL Anesthesia Complication Comment: Post-operative progress note Anesthesia: Postop Eval II Evaluation Mental status: Awake Pain Level: 1 nausea: No Vomiting: No
--- NOTE | 2024-12-31 14:52 | PCM.POSTANE2 ---
Anesthesia Postop Eval I Sum Postop Eval Completion status Anesthesia document: Postop Eval 1 completed: Yes Anesthesia Postop Eval I Summary Anesthesia Postop Eval I Summary: Anesthesia Postop Eval I: Assessment Summary Airway patent Yes 12/31/24 13:51 SENIOR PROJECT MANAGER [email or web address].[email or web address] Spontaneous unlabored Yes 12/31/24 13:51 SENIOR PROJECT MANAGER ENGINEERING.LMIL respirations Mental status Awake 12/31/24 13:51 SENIOR PROJECT MANAGER ENGINEERING.LMIL nausea No 12/31/24 13:51 SENIOR PROJECT MANAGER ENGINEERING.LMIL Vomiting No 12/31/24 13:51 SENIOR PROJECT MANAGER ENGINEERING.LMIL Anesthesia Postop Eval I: Fluid Summary Crystalloid volume administer 1,400 12/31/24 13:51 SENIOR PROJECT MANAGER ENGINEERING.LMIL (ml) Colloids volume administered ( ml) Blood Product volume administered (ml) Total IV fluid infused 1,400 12/31/24 13:51 SENIOR PROJECT MANAGER ENGINEERING.LMIL Anesthesia Postop Eval I: Summary Notes Anesthesia Complication No 12/31/24 13:51 SENIOR PROJECT MANAGER ENGINEERING.LMIL Anesthesia Complication Comment: Post-operative progress note Anesthesia: Postop Eval II Evaluation Mental status: Awake Pain Level: 1 nausea: No Vomiting: No
[2024-12-31] MEDS: 0.9% Saline Lock 10 ML Syringe IV (18:07)
[2024-12-31] MEDS: Ketorolac 15 MG/ML Vial IV (18:07)
[2024-12-31] MEDS: Cefazolin 1 GM/50 ML BAG IV (21:33)
[2024-12-31] MEDS: oxyCODONE 5 MG Tablet PO (21:41)
[2024-12-31] MEDS: Senna/Docusate Sodium 1 Tablet 2 TABLET PO (21:41)
[2024-12-31] MEDS: Aspirin 81 MG TAB.CHEW PO (21:41)
[2025-01-01 00:16] VITALS: BP 150/76; PULSE 62; RESP 14; TEMP 36.6; O2SAT 98
[2025-01-01 04:30] VITALS: BP 165/83; PULSE 62; RESP 14; TEMP 36.4; O2SAT 100
[2025-01-01] MEDS: Cefazolin 1 GM/50 ML BAG IV (04:55)
[2025-01-01] MEDS: Acetaminophen 500 MG Tablet 1000 MG PO ×2 (05:07→13:04)
[2025-01-01] MEDS: Losartan Potassium 100 MG Tablet PO (05:07)
[2025-01-01] MEDS: hydroCHLOROthiazide 25 MG Tablet PO (05:07)
[2025-01-01] MEDS: Spironolactone 25 MG Tablet PO (05:07)
[2025-01-01] MEDS: Aspirin 81 MG TAB.CHEW PO (05:07)
[2025-01-01] MEDS: oxyCODONE 5 MG Tablet PO ×2 (05:08→11:47)
[2025-01-01] MEDS: Famotidine 20 MG Tablet PO (05:08)
[2025-01-01] MEDS: amLODIPine 10 MG Tablet PO (05:08)
[2025-01-01 08:16] VITALS: BP 127/65; PULSE 58; RESP 18; TEMP 36.4; O2SAT 99
[2025-01-01] MEDS: Senna/Docusate Sodium 1 Tablet 2 TABLET PO (08:21)
[2025-01-01 08:42] LABS: Absolute Lymphocyte Count 1.36 X10^3/uL (0.83-4.51); Absolute Neutrophil Count 13.6 X10^3/uL (2.0-7.7); Basophil# 0.02 X10^3/uL; Basophil% 0.1 % (0-1); Hematocrit 42.6 % (40-54); Hemoglobin 14.9 g/dL (13.0-16.5); Lymphocyte # 1.36 X10^3/ul (0.83-4.51); Lymphocyte % 8.3 % (19-41); Mean Corpuscular Hgb 31.3 pg (27.0-32.0); Mean Corpuscular Volume 89.5 fL (80-94); Mean Platelet Vol. 10.3 fl (6.2-12.0); Monocyte# 1.26 X10^3/uL; Monocyte% 7.7 % (0-10); NRBC Flagged by Analyzer 0 % (0-5); Neutrophil # 13.57 X10^3/uL (2.7-7.7); Neutrophil % 82.7 % (47-70); Platelet Count 231 K/mm3 (150-450); RBC Distribution Width SD 39.5 fl (35.1-43.9); Red Blood Count 4.76 M/mm3 (4.6-6.2); White Blood Count 16.4 K/mm3 (4.4-11.0)
--- NOTE | 2025-01-01 08:45 | PCM.PN.ORT ---
Subjective Subjective Patient appears comfortable in bed. Patient states that his pain is adequately controlled. Patient states that he does have help at home and he feels very comfortable and safe with going home. Patient denies any new numbness or tingling. Patient denies any fever, chills, signs of infection. Patient denies any nausea, vomiting, dizziness. Patient denies any shortness of breath, chest pain, calf pain. Patient denies any adverse events overnight. Objective Data Objective Data Vital Signs: Vital Signs Temp Pulse Resp BP Pulse Ox O2 Del Method O2 Flow Rate 97.5 F L 58 L 18 127/65 H 99 Room Air 4 01/01/25 08:16 01/01/25 08:16 01/01/25 08:16 01/01/25 08:16 01/01/25 08:16 01/01/25 08:16 12/31/24 16:51 Oxygen Flow Rate (L/min) 4 Oxygen Delivery Method Room Air Weight: 120.7 kg Body Mass Index (BMI) 39.2 Intake & Output: Intake and Output for Last 24 Hours 12/30/24 12/31/24 01/01/25 23:59 23:59 23:59 Intake Total 2392 / 2742 500 / 500 Balance 2392 / 2742 500 / 500 Lab / Micro Data 01/01/25 08:28 12/14/24 06:03 Labs: Laboratory Results - last 24 hr 12/31/24 10:22: POC Glucose 155 H 01/01/25 08:28: WBC 16.4 H, RBC 4.76, Hgb 14.9, Hct 42.6, MCV 89.5, MCH 31.3, MCHC 35.0, RDW Std Deviation 39.5, RDW Coeff of Lizbeth 12.0, Plt Count 231, MPV 10.3, Immature Gran % (Auto) 1.200 H, Neut % (Auto) 82.7 H, Lymph % (Auto) 8.3 L, Collin % (Auto) 7.7, Eos % (Auto) 0.0, Baso % (Auto) 0.1, Absolute Neuts (auto) 13.6 H, Absolute Lymphs (auto) 1.36, Nucleated RBC % 0 Micro: Microbiology 12/14/24 06:03 Swab (Method) Nasal Screen MRSA/MSSA - Final Radiography Diagnostic Testing: Radiology Impression Knee X-Ray 12/31/24 13:55 IMPRESSION: Hardware in position. Reading [facility] Physical Exam Narrative Vital signs are afebrile and stable. FRANCISCO J hose in place bilaterally. SCDs in place bilaterally. Incision is clean dry and intact. Dorsiflexion and plantarflexion are performed actively without pain or restriction. Sensation intact to light touch. Neurovascularly intact overall. Negative Homans bilaterally. Const alert, oriented x3 and no apparent distress Assessment & Plan Assessment/Plan (1) Status post revision of total replacement of right knee: PLAN: Status post right revision of total knee replacement. 1. Physical therapy. Patient will continue being weightbearing as tolerated, range of motion as tolerated, and resume physical therapy. 2. DVT prophylaxis: Patient will be taking aspirin 81 mg twice daily until 4 weeks postoperatively. Patient was instructed wear FRANCISCO J hose for 2 weeks postoperatively. 3. Pain control: Patient was instructed to take Tylenol 1000 mg every 8 hours [id number] taking no more than 3000 mg in 24 hours. Patient will be on meloxicam for 4 weeks postoperatively. Patient was instructed not to take any other anti-inflammatory medications while taking meloxicam. Patient was then instructed to take her oxycodone 1-2 every 4-6 hours as needed for breakthrough pain. OARRS report was reviewed today. The risk of abuse potential for narcotic pain medication was discussed and reviewed. Patient voiced understanding. 4. Constipation: Patient was instructed to take senna as instructed until first bowel movement to decrease risk of infection following surgery. Patient was instructed if she has not had a bowel movement in 3 days contact our office. Patient states that she already has senna at home. 5. Labs: H&H: 14.9/42.6. Patient is afebrile and vital signs are stable. Hemoglobin is currently above the threshold of 10 and patient does not have to begin anemia protocol. 6. Reactive leukocytosis: White blood cell count is currently 16.4. Patient did receive intraoperative Decadron. Currently has stable vital signs and is afebrile. 7. Incentive spirometry: Patient was encouraged to use incentive spirometer every hour if she is awake for the first week to exercise the lungs and decrease risk of postoperative lung infection. 8. Doxycycline: Patient will be on doxycycline for 2 weeks postoperatively due to nature of a revision knee replacement. Patient was educated to be extra cautious in the sun as it can cause increased risk sunburn. Patient was encouraged to try taking a probiotic while taking doxycycline. 9. Patient is to follow-up per postoperative instructions. 10. Patient will be seen by medicine to evaluate chronic disease. Appreciate recommendations from medicine for safe and proper discharge. 11. Patient does have outpatient physical therapy and follow-up appointment scheduled. 12. Patient is okay for discharge if pain is adequately controlled, has worked with and is cleared by physical therapy and Occupational Therapy and is okay per medicine doctors instructions. 13. Disposition: At this time patient does feel that he is ready to go home. Patient states that he does have help at home. Patient states that he is eager to get out of here and get some sleep. Patient does have outpatient physical therapy established. Patient does have follow-up appointment established in 2 weeks. Patient was educated on doxycycline and the risk of sunburn. Patient states that he does have senna, aspirin, and Tylenol at home from previous surgery. Patient's medications were sent to patient's pharmacy of choice in office. Patient was educated to call with any questions, concerns, new problems.
--- NOTE | 2025-01-01 08:52 | DCINST_ITS ---
Discharge Instructions Diet Discharge Diet: No restrictions DC O2, CPAP, BIPAP needs Home O2 Discharge instructions: No Dressing / Incision Discharge Activity: Use Walker (Weightbearing as tolerated with walker.) Weight Bearing Status: Weight bearing as tolerated (With walker.) Keep extremity elevated above heart level: Right Leg Dressing / Incision Call your doctor if your incision/area has: Continuous Slow Oozing, Sudden Increased Bleeding, Increased Pain/ Swelling, Increased Redness, Foul Smelling Discharge and Swelling at the incision site Call your doctor if you observe: Fever of 101 or Higher, Coldness, Increased Pain, Numbness or Tingling, Change in Color, Inability to urinate, Inability to have a bowel movement, Using more than 1 pad per hour, Shortness of breath, Dizziness, Fainting spells, Swelling in the ankles, Chest pain, Prolonged hiccupping, Increased palpitations (irregular heartbeat), Calf discomfort and Uncontrolled pain Remove Dressing in: 5 days (Patient is able to remove dressing on postop day 5. Patient was encouraged at this is 01/05/2025. As long as incision is clean dry and intact patient may leave open to air and do gentle soap and water and shower.) Cleanse incision/area with: Soap & Water Additional Dressing/Incision Instructions:: Patient was encouraged no soaking, submerging until 6 weeks postoperatively. Patient was encouraged no lotions, salves, oils until 6 weeks postoperatively. Patient was educated on the increased risk of sunburn while taking doxycycline. Patient is on doxycycline due to history of revision knee replacement. Patient was encouraged to take probiotic with doxycycline. OARRS report was reviewed by myself today. Follow Up Care Test Results: Test results from this visit will be discussed in further detail at your follow- up appointment, if applicable. Discharge Plan Admission Admit Date/Time: 12/31/24 15:12 Attending Provider: Lam Wilson Primary Care Provider: Santana Spencer Consulting Providers: Nicola Schaefer; Florin Sadnerson; Rojas Loera Discharge Orders/Prescriptions Prescriptions: New acetaminophen 500 mg Tablet 1,000 mg PO TID Qty: 0 0RF aspirin 81 mg capsule 81 mg PO BID 30 Days Qty: 60 0RF famotidine 20 mg Tablet 20 mg PO DAILY 30 Days Qty: 30 0RF doxycycline monohydrate 100 mg Capsule 100 mg PO BID 14 Days Qty: 28 0RF sennosides-docusate sodium [Stimulant Laxative Plus] 8.6-50 mg Tablet 2 tab PO BID Qty: 0 0RF Rx Instructions: Take until first bowel movement and then as needed. meloxicam 7.5 mg Tablet 7.5 mg PO BID 30 Days Qty: 60 0RF oxycodone 5 mg Tablet 5 - 10 mg PO Q4H PRN PRN (Reason: As needed for pain control.) 7 Days Qty: 42 0RF Continued amlodipine 10 MG tablet 10 mg PO DAILY hydrochlorothiazide 25 MG tablet 25 mg PO DAILY losartan 100 MG tablet 100 mg PO DAILY spironolactone 50 mg tablet 25 mg PO DAILY Referrals / Follow Up: Santana Spencer MD [Primary Care Provider] - Disposition Disposition (needs filled in before D/C Order can be placed): Home, Self Care
[2025-01-01 09:40] LABS: Anion Gap 10 (5-15); BUN 14 mg/dL (4-19); Calcium,Total 9.1 mg/dL (7.6-11.0); Carbon Dioxide 24.4 mmol/L (21.0-32.0); Chloride 101 mmol/L (98-108); Creatinine, Serum 0.78 mg/dL (0.70-1.20); EST Glomerular Filtration Rate 99 (>60); Glucose 149 mg/dL (70-99); Potassium 4.2 mmol/L (3.3-5.1); Sodium Level 136 mmol/L (133-145)
--- NOTE | 2025-01-01 10:38 | PCM.PN.HOSP ---
Reason for Visit Reason for Visit: Diagnoses Encounter for other preprocedural examination (12/31/24) Presence of right artificial knee joint (12/31/24) Subjective Subjective Patient is an orthopedic surgery primary patient. Had revision of right total knee replacement done yesterday with Dr. Wilson. Tolerated procedure well, no intraoperative complications noted. Medicine consulted postoperatively for medical management. Saw patient at bedside this morning. Patient was sitting up comfortably in bedside chair, conversing normally and in no acute distress. Reported mild right knee discomfort this morning but had been up walking around with therapy and doing well. He was hoping to go home today. He denied any other acute concerns at this time. Objective Data Objective Data Vital Signs: Vital Signs Temp Pulse Resp BP Pulse Ox O2 Del Method O2 Flow Rate 97.5 F L 58 L 18 127/65 H 99 Room Air 4 01/01/25 08:16 01/01/25 08:16 01/01/25 08:16 01/01/25 08:16 01/01/25 08:16 01/01/25 08:16 12/31/24 16:51 Oxygen Flow Rate (L/min) 4 Oxygen Delivery Method Room Air Weight: 120.7 kg Body Mass Index (BMI) 39.2 Intake & Output: Intake and Output for Last 24 Hours 12/30/24 12/31/24 01/01/25 23:59 23:59 23:59 Intake Total 2392 / 2742 500 / 500 Balance 2392 / 2742 500 / 500 Lab / Micro Data 01/01/25 08:28 01/01/25 08:28 Labs: Laboratory Results - last 24 hr 12/31/24 10:22: POC Glucose 155 H 01/01/25 08:28: WBC 16.4 H, RBC 4.76, Hgb 14.9, Hct 42.6, MCV 89.5, MCH 31.3, MCHC 35.0, RDW Std Deviation 39.5, RDW Coeff of Lizbeth 12.0, Plt Count 231, MPV 10.3, Immature Gran % (Auto) 1.200 H, Neut % (Auto) 82.7 H, Lymph % (Auto) 8.3 L, Wharton % (Auto) 7.7, Eos % (Auto) 0.0, Baso % (Auto) 0.1, Absolute Neuts (auto) 13.6 H, Absolute Lymphs (auto) 1.36, Nucleated RBC % 0, Sodium 136, Potassium 4.2, Chloride 101, Carbon Dioxide 24.4, Anion Gap 10, BUN 14, Creatinine 0.78, Estim Creat Clear Calc 118.10, Est GFR (MDRD) Non-Af 99, BUN/Creatinine Ratio 18.0, Glucose 149 H, Calcium 9.1 Micro: Microbiology 12/14/24 06:03 Swab (Method) Nasal Screen MRSA/MSSA - Final Radiography Diagnostic Testing: Radiology Impression Knee X-Ray 12/31/24 13:55 IMPRESSION: Hardware in position. Reading [facility] Physical Exam Const alert, oriented x3 and no apparent distress Constitutional Narrative: Pleasant upper middle-aged male, class II obesity, sitting up comfortably in bedside chair, conversing normally, in no acute distress. General Appearance: cooperative and comfortable HEENT normocephalic, head/scalp atraumatic, hearing grossly normal bilaterally, nasal mucous membranes and turbinates normal and moist oral mucous membranes Eyes PERRL, EOMs intact bilaterally and conjunctivae normal Neck full ROM Chest inspection of chest normal Resp normal respiratory effort, normal air movement, no use of accessory muscles and clear to auscultation bilaterally Cardio regular rate, regular rhythm, no murmurs and peripheral pulses 2+ throughout GI normal to inspection, nondistended, normoactive bowel sounds, soft to palpation, non-tender and non-distended Back/Spine normal ROM Extremity Extremity Narrative: Right knee with dressing and ice pack in place. Skin no rashes or lesions noted Psych mental status grossly normal Assessment & Plan Assessment/Plan (1) Status post revision of total replacement of right knee: PLAN: Plan Patient is a 64-year-old male who [facility] for planned revision of right knee replacement. Medicine consulted postoperatively for medical management. 1. Chronic postoperative right knee pain ? Orthopedic surgery primary. Had initial right total knee replacement done in 2022. Has reported chronic pain since that procedure. S/p revision of right TKA with polyethylene exchange, scar debridement and loose body removal on 12/[address] Wilson. Tolerated procedure well, no intraoperative complications. Postoperative management per orthopedics. 2. Mild leukocytosis ? WBC count 16 with neutrophil predominance on postop day 1. Strongly suspect secondary to acute stress reaction in setting of procedure yesterday. Afebrile and hemodynamically stable, very low concern for active infection. Recommends repeat CBC in 5 to 7 days to ensure WBC count has normalized. 3. Hypertension ? Hypertensive to the 150s to 160s postoperatively. Resumed home amlodipine, losartan, hydrochlorothiazide and spironolactone with improvement in blood pressure to the 120 systolic. Continue home meds on discharge. 4. Class II obesity ? BMI 39 on admit. Encouraged weight loss. 5. Former tobacco use ? Encouraged continued cessation. 6. History of left total knee replacement ? Noted. Total clinical time spent by myself addressing the patient's medical issues, reviewing all the data, and collaborating with patient's care team: 35 minutes. Charges/Coding Visit Charges Inpatient E&M: 89410 Subs Hosp L2
--- NOTE | 2025-01-01 12:20 | CASEMGMT ---
VERO [employer] PARTS COUNTER REPRESENTATIVE LYUDMILA to room to meet with patient for initial transition planning/care coordination assessment. VERO COREAS introduced self and role at [facility]. Pt voices understanding and consents to assessment at this time. Pt sitting up in chair in room in no distress at this time. in room. Pt is A/O at this time and answers all questions appropriately. Care providers, pharmacy, and demographics verified/updated at this time. PCP: Dr Spencer Specialists: Dr Wilson-shan Preferred Pharmacy: [facility] Retail Insurance: [employer] Prescription Benefit: Yes Living Will/HPOA: Has LW and Healthcare POA, who is his , Bess. They are aware copies are not on file @ [facility] & asked to be brought in. inquired if they could be e-mailed & was made aware this is also an option. VERO COREAS provided her w/this [facility] e-mail. LNOK: , Bess. Living Arrangements: Lives w/ in 2-story home. Flight to Bedroom and full bath. Plans to [facility] for awhile until he is able to navigate stairs better. Was independent prior to admission. able to help. Transportation: Pt, . Denies transportation concerns. 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 Pt states no need for further DME at this time. HHC/SNF: No history of either. Denies need for HHC. Has been to OP therapy @ [facility] & plans to do this again. Has appt 01/04 @ 8 AM and pt is aware. Pt wishes to return home and states has no concerns with going home. PLAN: Home w/OP therapy @ [facility]. Amandeep DE SANTIAGO RN, CM
[2025-01-01] MEDS: Doxycycline 100 MG CAPSULE PO (13:04)
[2025-01-01 13:06] VITALS: BP 140/69; PULSE 63; RESP 18; TEMP 36.5; O2SAT 98
--- NOTE | 2025-01-01 13:47 | PHA.DC_ITS ---
Pharmacy [facility] Pharmacy Service has performed discharge medication reconciliation and counseling for this patient. 1. Acetaminophen 1000mg PO Q8 2. Aspirin 81mg PO BID 3. Doxycycline 100mg PO BID x 14 days 4. Famotidine 20mg PO daily 5. Meloxicam 7.5mg PO BID 6. Oxycodone 5-10mg PO Q4H PRN pain 7. Senna/docusate 2T PO BID until first BM, then PRN The patient's discharge medication list was reviewed for discrepancies and discrepancies were resolved. The patient was counseled on the following discharge medications and changes in medications for homegoing were reviewed. The Reason for Use, instructions for use, and potential side effects were reviewed for all new medications. The patient's questions regarding all of their medications were answered. The patient was able to verbally demonstrate an understanding of their discharge medications. Patient counseled by pharmacy services director, Blake. Medications at Discharge Home Medications amlodipine 10 mg tablet 10 mg PO DAILY bp 06/16/20 hydrochlorothiazide 25 mg tablet 25 mg PO DAILY bp 06/16/20 losartan 100 mg tablet 100 mg PO DAILY bp 06/16/20 spironolactone 50 mg tablet 25 mg PO DAILY HYPERTENSION 09/11/24 acetaminophen 500 mg tablet 1,000 mg (2 x 500 mg) PO TID #0 tabs 01/01/25 aspirin 81 mg capsule 81 mg PO BID 30 days #60 caps 01/01/25 doxycycline monohydrate 100 mg capsule 100 mg PO BID 14 days #28 caps 01/01/25 famotidine 20 mg tablet 20 mg PO DAILY 30 days #30 tabs 01/01/25 meloxicam 7.5 mg tablet 7.5 mg PO BID 30 days #60 tabs 01/01/25 oxycodone 5 mg tablet 5 - 10 mg (1 - 2 x 5 mg) PO Q4H PRN PRN As needed for pain control. 7 days #42 tabs 01/01/25 sennosides 8.6 mg-docusate sodium 50 mg tablet (Stimulant Laxative Plus) 2 tab PO BID #0 tabs 01/01/25
== END 2025-01-01 13:25 | disposition home or self-care (01) ==
LOC: MS3 01-01 07:11 → SDC 01-01 16:52 → MS3 05-13 10:59
PROVIDERS: Anesthesiology; Family Medicine; Admitting Provider Specialist; PCP Family Medicine; Referring Provider Specialist; Visit Provider Specialist
PROC: (CPT 27487; principal; 2024-12-31 11:40)
DX: T84.84XA Pain due to internal orthopedic prosthetic devices, implants and grafts, initial encounter (principal); E66.812 Obesity, class 2; I10 Essential (primary) hypertension; Z68.39 Body mass index [BMI] 39.0-39.9, adult; Z96.651 Presence of right artificial knee joint; Z79.899 Other long term (current) drug therapy; Y79.2 Prosthetic and other implants, materials and accessory orthopedic devices associated with adverse incidents; E78.00 Pure hypercholesterolemia, unspecified; N40.0 Benign prostatic hyperplasia without lower urinary tract symptoms; M23.8X1 Other internal derangements of right knee; L90.5 Scar conditions and fibrosis of skin
CPT/HCPCS: 27486; 01402; 36415; 73560; 80048; 82040; 82962; 83735; 85025; 87081; 94668; 96365; 96366; 96375; 97162; 99221; C1776; A4216; G0378; J2405; J3475